=== PATIENT | male | born 1950 | race Hispanic/Latino ===

== ENCOUNTER → 2019-11-02 | Day surgery (SDC) | payer MEDICARE ==
[2019-10-31 08:34] LABS: BASOPHILS # (AUTO) 0.1 (0.0-0.1); BASOPHILS % 1.5 % (0.0-1.0); EOSINOPHILS # (AUTO) 0.2 (0.0-0.4); EOSINOPHILS % 2.3 % (0.0-6.0); HEMATOCRIT 44.3 % (38.2-49.6); HEMOGLOBIN 14.5 g/dL (14.0-18.0); LYMPHOCYTES # (AUTO) 2.5 (1.0-3.2); LYMPHOCYTES % 33.3 % (18.0-39.1); MEAN CORPUSCULAR HEMOGLOBIN 28.9 pg (28-32); MEAN CORPUSCULAR HGB CONC 32.7 g/dL (31-35); MEAN CORPUSCULAR VOLUME 88.4 fL (81-99); MONOCYTES # (AUTO) 0.9 (0.2-0.8); MONOCYTES % 11.6 % (4.4-11.3); NEUTROPHILS # (AUTO) 3.8 (2.1-6.9); NEUTROPHILS % 50.5 % (38.7-80.0); PLATELET COUNT 287 x10e3/uL (140-360); RED BLOOD COUNT 5.01 x10e6/uL (4.3-5.7); RED CELL DISTRIBUTION WIDTH 14.3 % (11.7-14.4)
--- NOTE | 2019-10-31 08:47 | Diagnostic Imaging Report ---
EXAM: CHEST 2 VIEWS DATE: 10/31/2019 8:03 AM INDICATION: Preoperative evaluation COMPARISON: None FINDINGS: The trachea is midline. The lungs are symmetrically expanded without evidence for large focal consolidation, pneumothorax, or significant pleural effusion. The cardiomediastinal silhouette and pulmonary vasculature are within normal limits. No acute osseous abnormality is identified. The surrounding soft tissues are unremarkable. IMPRESSION: No acute cardiopulmonary process identified. Signed by: Dr. Baltazar Trotter MD on 10/31/2019 8:44 AM
--- NOTE | 2019-10-31 08:51 | Diagnostic Imaging Report ---
EXAM: ABDOMEN-1VIEW (KUB) DATE: 10/31/2019 8:04 AM INDICATION: Preoperative evaluation COMPARISON: None FINDINGS/IMPRESSION: There is a 2.2 cm calcification projecting over the right mid-abdomen which is in the expected course of the right ureter and may represent a ureteral stone. No prior examinations are available for comparison. No other radiographically evident renal calculi are appreciated. A suspected phlebolith is noted within the left hemipelvis. Bowel gas pattern is nonobstructive. No acute osseous abnormality is identified. Signed by: Dr. Baltazar Trotter MD on 10/31/2019 8:48 AM
[2019-10-31 08:56] LABS: ANION GAP 10.8 mmol/L (8-16); BLOOD UREA NITROGEN 21 mg/dL (7-26); BUN/CREATININE RATIO 23 (6-25); CALCIUM 9.4 mg/dL (8.4-10.2); CARBON DIOXIDE 28 mmol/L (22-29); CHLORIDE 105 mmol/L (98-107); EST GLOMERULAR FILTRATION RATE > 60 ML/MIN (60-); GLUCOSE 98 mg/dL (74-118); POTASSIUM 3.8 mmol/L (3.5-5.1); SODIUM 140 mmol/L (136-145)
[~2019-11-02] MED LIST: CEFTRIAXONE SOD 1 GM/NS 50 ML 50 ML IV ONE; DESFLURANE 240 ML BTL INH ONE; DEXAMETHASONE SOD PHOS INJ 4 MG/ML VIAL ONE; EPHEDRINE SULFATE INJ 50 MG/ML VIAL ONE; FENTANYL CITRATE/PF 100MCG/2 ML INJ ONE; FINASTERIDE5 MG PO; FLOMAX0.4 MG PO; IOPAMIDOL 300MG/ML 50ML INFUS..BTL IV ONE; LIDOCAINE HCL 2% LOCAL INJ 5 ML SDV VIAL INJ ONE; LOVASTATIN40 MG PO; MIDAZOLAM HCL 2 MG/2 ML VIAL ONE; OMEPRAZOLE40 MG PO; ONDANSETRON HCL INJ 2MG/ML 2ML 2 MG/ML VIAL ONE; PROPOFOL IV EMULSION 10 MG/ML 20 ML VIAL ONE; TRIAMTERENE-HC1 EAC1 PO
--- OUTSIDE RECORDS SUMMARY | 2019-11-02 06:06 | XMS REPORT ---
Author Author [facility] Address Unknown Phone Unavailable Care Team Providers Care Director Of Therapy Services Name Role Phone JEAN-PIERRE GE Unavailable Unavailable Problems This patient has no known problems. Allergies, Adverse Reactions, Alerts This patient has no known allergies or adverse reactions. Medications This patient has no known medications. Results Test Description Test Time Test Comments Text Results Atomic Results Result Comments ABDOMEN-1VIEW (KUB) 2019-10-31 08:45:00 [place] [id number] Patient Name: LAVINIA BUENO MR #: [id number] : 1950 Age/Sex: 69/M Req #: [id number] Adm Physician: Ordered by: JEAN-PIERRE GE MD Report #: [id number] Location: OR Room/Bed: Procedure: [id number] DX/ABDOMEN-1VIEW (KUB) Exam Date: Exam Time: REPORT STATUS: Signed EXAM: ABDOMEN-1VIEW (KUB) DATE: 10/31/2019 8:04 AM INDIC ATION: Preoperative evaluation COMPARISON: None FINDINGS/IMPRESSION: There is a 2.2 cm calcification projecting over the right mid-abdomen which is in the expected course of the right ureter and may represent a ureteral stone. No prior examinations are available for comparison. No other radiographically evident renal calculi are appreciated. A suspected phlebolith is noted within the left hemipelvis. Bowel gas pattern is nonobstructive. No acute osseous abnormality is identified. Signed by: Dr. Baltazar Trotter MD on 10/31/2019 8:48 AM Dictated By: BALTAZAR TROTTER MD 7 Transcribed By: ESTHER on 10/31/19847 COPY TO: JEAN-PIERRE GE MD CHEST 2 VIEWS 2019-10-31 08:43:00 [place] [id number] Patient Name: LAVINIA BUENO MR #: [id number] : 1950 Age/Sex: 69/M Req #: [id number] Adm Physician: Ordered by: JEAN-PIERRE GE MD Report #: [id number] Location: OR Room/Bed: Procedure: [id number] DX/CHEST 2 VIEWS Exam Date: Exam Time: REPORT STATUS: Signed EXAM: CHEST 2 VIEWS DATE: 10/31/2019 8:03 AM INDICATION: Preop erative evaluation COMPARISON: None FINDINGS: The trachea is midline. The lungs are symmetrically expanded without evidence for large focal consolidation, pneumothorax, or significant pleural effusion. The cardiomediastinal silhouette and pulmonary vasculature are within normal limits. No acute osseous abnormality is identified. The surrounding soft tissues are unremarkable. IMPRESSION: No acute cardiopulmonary process identified. Signed by: Dr. Baltazar Trotter MD on 10/31/2019 8:44 AM Dictated By: BALTAZAR TROTTER MD 3 Transcribed By: ESTHER on 10/31/19843 COPY TO: JEAN-PIERRE GE MD
[2019-11-02 08:30] VITALS: BP 166/88
--- NOTE | 2019-11-05 08:55 | Operative Report ---
DATE OF PROCEDURE: 11/02/2019 SURGEON: Sebastian Tavarez MD PREOPERATIVE DIAGNOSES: Right 2.0 x 2.1 cm mid ureteral calculus, right hydronephrosis, hematuria. POSTOPERATIVE DIAGNOSES: Right 2.0 x 2.1 cm mid ureteral calculus, right hydronephrosis, hematuria. PROCEDURES: 1. Cystourethroscopy with right ureteral catheterization (entirely separate procedure for microscopic hematuria). 2. Right-sided shock wave lithotripsy (entirely separate procedure for diagnosis of right ureteral calculi). 3. Supervision of fluoroscopy. 4. Interpretation of retrograde pyelography. ANESTHESIA: General. ESTIMATED BLOOD LOSS: Minimal. COMPLICATIONS: None. INDICATIONS FOR PROCEDURE: Mr. Augustin is a 69-year-old male patient with a history of hematuria, found to have a very large right mid ureteral calculus, which is obstructing. The patient and I had an extensive discussion of alternatives, the benefits, the fact that this is an emergent condition, which requires immediate intervention clear to do so, could lead to renal failure, atrophy, loss of the kidney, infection, even . The patient voiced understanding and elected to proceed. PROCEDURE IN DETAIL: After informed consent was obtained, the patient was taken to the operative suite, placed supine on operating table, and underwent general anesthesia by the Anesthesia Service. He was placed in dorsal position, and sterilely prepped and draped for cystoscopy. A 21-St Helenian cystoscope was inserted per urethra and normal urethra noted. Panendoscopy of the bladder revealed no tumors, no stones. Both ureteral orifices were in normal anatomic location and position. Right ureteral orifice was catheterized and retrograde pyelogram was performed revealing a very large obstructing right mid ureteral calculus. Multiple attempts were made to pass the guidewire through this. A 5-St Helenian open-ended catheter was advanced to the level of stone utilizing both an angled tip glide, straight glide, and a regular Stiff wire. A shock wave head was brought into view. A total 3000 shocks were delivered to the stone. Maximum power setting of 7. Attempts were then again made at the end of the procedure to advance this proximally, which were unsuccessful. At this time, we will write for the shock wave lithotripsy to do some workup and the patient followup in 1-2 weeks. Recheck imaging. Likely will return for a staged urgent procedure. Supervision of fluoroscopy and interpretation of retrograde pyelography: I was present for entire procedure and supervised fluoroscopy. There was no radiologist present. Attention was turned to the right renal orifice, which was catheterized. Retrograde pyelogram was performed revealing a delicate distal ureter, 20 x 20 cm right mid ureteral calculus proximal hydronephrosis on the right side, unable to place a stent. MD DAVID Lovell/RACHAELL /[id number]
== END | disposition home or self-care (01) ==
LOC: OR 05:10 → EDBD 07:00
PROVIDERS: ATTEND Urology
DX: N20.1 Calculus of ureter (principal); N13.30 Unspecified hydronephrosis; N40.1 Benign prostatic hyperplasia with lower urinary tract symptoms; N13.8 Other obstructive and reflux uropathy; R35.1 Nocturia; R39.14 Feeling of incomplete bladder emptying; K21.9 Gastro-esophageal reflux disease without esophagitis; I10 Essential (primary) hypertension; Z01.810 Encounter for preprocedural cardiovascular examination; Z01.818 Encounter for other preprocedural examination; Z01.812 Encounter for preprocedural laboratory examination
CPT/HCPCS: 36415; 50590; 71046; 74018; 80048; 85025; 93005; C1758; J0696; J1100; J2001; J2250; J2405; J2704; J3010; Q9967

== ENCOUNTER 2019-11-07 08:16 | Observation (INO) | payer MEDICARE ==
[~2019-11-07] VITALS: Ht 167.6 cm; Wt 78.9 kg
[~2019-11-07 08:16] MED LIST changes: -CEFTRIAXONE SOD 1 GM/NS 50 ML 50 ML IV ONE; -DESFLURANE 240 ML BTL INH ONE; -DEXAMETHASONE SOD PHOS INJ 4 MG/ML VIAL ONE; -EPHEDRINE SULFATE INJ 50 MG/ML VIAL ONE; -FENTANYL CITRATE/PF 100MCG/2 ML INJ ONE; -FINASTERIDE5 MG PO; -IOPAMIDOL 300MG/ML 50ML INFUS..BTL IV ONE; -LIDOCAINE HCL 2% LOCAL INJ 5 ML SDV VIAL INJ ONE; -MIDAZOLAM HCL 2 MG/2 ML VIAL ONE; -ONDANSETRON HCL INJ 2MG/ML 2ML 2 MG/ML VIAL ONE; -PROPOFOL IV EMULSION 10 MG/ML 20 ML VIAL ONE
[2019-11-07] MEDS ORDERED: ONDANSETRON HCL INJ 2MG/ML 2ML 2 MG/ML VIAL IV STA (08:25)
[2019-11-07] MEDS ORDERED: KETOROLAC TROMETHAMINE 30 MG/ML VIAL IV STA (08:25)
[2019-11-07] MEDS ORDERED: SODIUM CHLORIDE 0.9% 1000ML 1,000 ML IV STA (08:41)
[2019-11-07] MEDS ORDERED: MORPHINE SULFATE INJ 4 MG/ML INJ 1ML IV STA (08:48)
[2019-11-07 09:01] LABS: BASOPHILS # (AUTO) 0.1 (0.0-0.1); BASOPHILS % 0.9 % (0.0-1.0); EOSINOPHILS # (AUTO) 0.1 (0.0-0.4); EOSINOPHILS % 0.9 % (0.0-6.0); HEMATOCRIT 45.4 % (38.2-49.6); HEMOGLOBIN 15.1 g/dL (14.0-18.0); LYMPHOCYTES # (AUTO) 2.8 (1.0-3.2); LYMPHOCYTES % 27.4 % (18.0-39.1); MEAN CORPUSCULAR HEMOGLOBIN 28.7 pg (28-32); MEAN CORPUSCULAR HGB CONC 33.3 g/dL (31-35); MEAN CORPUSCULAR VOLUME 86.3 fL (81-99); MONOCYTES # (AUTO) 1.2 (0.2-0.8); MONOCYTES % 11.3 % (4.4-11.3); NEUTROPHILS # (AUTO) 6.1 (2.1-6.9); NEUTROPHILS % 58.8 % (38.7-80.0); PLATELET COUNT 280 x10e3/uL (140-360); RED BLOOD COUNT 5.26 x10e6/uL (4.3-5.7); RED CELL DISTRIBUTION WIDTH 14.3 % (11.7-14.4)
[2019-11-07 09:17] LABS: BILIRUBIN,URINE NEGATIVE (NEGATIVE); CLARITY,URINE CLEAR (CLEAR); COLOR,URINE YELLOW (YELLOW); KETONES,URINE NEGATIVE (NEGATIVE); LEUKOCYTE ESTERASE ,URINE NEGATIVE (NEGATIVE); NITRITE,URINE NEGATIVE (NEGATIVE); PROTEIN,URINE DIPSTICK NEGATIVE (NEGATIVE); URINE UROBILINOGEN 0.2 mg/dL (0.2 - 1)
[2019-11-07 09:23] LABS: ALANINE AMINOTRANSFERASE 18 IU/L (0-55); ALBUMIN 4.1 g/dL (3.5-5.0); ALBUMIN/GLOBULIN RATIO 1.2 (0.8-2.0); ALKALINE PHOSPHATASE 99 IU/L (40-150); BLOOD UREA NITROGEN 14 mg/dL (7-26); BUN/CREATININE RATIO 15 (6-25); CALCIUM 9.2 mg/dL (8.4-10.2); CARBON DIOXIDE 25 mmol/L (22-29); CHLORIDE 99 mmol/L (98-107); CREATININE, SERUM 0.91 mg/dL (0.72-1.25); EST GLOMERULAR FILTRATION RATE > 60 ML/MIN (60-); GLUCOSE 95 mg/dL (74-118); SODIUM 134 mmol/L (136-145)
[2019-11-07 09:24] LABS: BACTERIA,URINE RARE /HPF; EPITHELIAL CELLS,URINE RARE /LPF; RBC,URINE 21-50 /HPF (0-5); WBC,URINE (MAN) 0-5 /HPF (0-5)
--- NOTE | 2019-11-07 10:26 | Diagnostic Imaging Report ---
EXAM: CT Abdomen and Pelvis WITHOUT intravenous contrast INDICATION: Abdominal pain, renal calculus COMPARISON: KUB 10/31/2019 TECHNIQUE: Abdomen and pelvis were scanned utilizing a multidetector helical scanner from the lung base to the pubic symphysis without administration of IV contrast. Coronal and sagittal reformations were obtained. IV CONTRAST: None ORAL CONTRAST: None COMPLICATIONS: None RADIATION DOSE: Total DLP: 613.7 mGy*cm Dose modulation, iterative reconstruction, and/or weight based adjustment of the mA/kV was utilized to reduce the radiation dose to as low as reasonably achievable. FINDINGS: LOWER THORAX: Normal. HEPATOBILIARY: No focal hepatic lesions. No biliary ductal dilatation. The gallbladder appears unremarkable. SPLEEN: No splenomegaly. PANCREAS: No focal masses or ductal dilatation. ADRENALS: No adrenal nodules. KIDNEYS/URETERS: Severe right hydroureteronephrosis. 11 mm obstructing calculus in the right mid ureter. No left hydronephrosis or hydroureter. No left urinary calculus. PELVIC ORGANS/BLADDER: Cervantes catheter in the decompressed bladder. PERITONEUM / RETROPERITONEUM: No free air or fluid. LYMPH NODES: No lymphadenopathy. VESSELS: Moderate atherosclerotic calcifications of the nonaneurysmal abdominal aorta and major branches. GI TRACT: Mild diverticulosis without CT evidence of diverticulitis. No abnormal bowel thickening. No bowel obstruction. Normal appendix. BONES AND SOFT TISSUES: No acute osseous injury. No suspicious lytic or blastic lesions. IMPRESSION: 11 mm obstructing calculus in the right mid ureter with associated severe right hydroureteronephrosis. No left hydronephrosis or urinary calculus. The above findings were discussed with Dr. Kapoor on 11/07/2019 10:09 AM, who responded indicating that the communication was understood. Signed by: Teto Gilliam MD on 11/07/2019 10:23 AM
[2019-11-07 10:27] LABS: INR 0.87; PROTHROMBIN TIME 12.3 seconds (11.9-14.5)
[2019-11-07] MEDS ORDERED: MORPHINE SULFATE INJ 4 MG/ML INJ 1ML IV PRN (10:30)
[2019-11-07] MEDS ORDERED: ONDANSETRON HCL INJ 2MG/ML 2ML 2 MG/ML VIAL IV PRN (10:30)
[2019-11-07] MEDS ORDERED: SODIUM CHLORIDE 0.9% 1000ML 1,000 ML ONE (10:50)
[2019-11-07] MEDS: SODIUM CHLORIDE 0.9% 1000ML 1,000 ML IV SCH ×2 (10:53→20:29)
[2019-11-07] MEDS: CEFTRIAXONE SOD 1 GM/NS 50 ML 50 ML IV SCH (10:53)
[2019-11-07] MEDS ORDERED: IOPAMIDOL 300 MG/ML 15ML VIAL IT ONE ×2 (13:31→14:53)
[2019-11-07] MEDS ORDERED: LIDOCAINE HCL 1% LOCAL INJ 20 ML VIAL ONE (13:31)
[2019-11-07] MEDS ORDERED: MIDAZOLAM HCL 2 MG/2 ML VIAL ONE (13:35)
[2019-11-07] MEDS ORDERED: FENTANYL CITRATE/PF 100MCG/2 ML INJ ONE (13:36)
[2019-11-07] MEDS ORDERED: AMLODIPINE BESYLATE 10 MG TAB PO ONE (15:45)
[2019-11-07] MEDS ORDERED: HYDROCODONE/APAP 10MG-325MG TAB PO PRN (15:45)
[2019-11-07] MEDS ORDERED: MAGNESIUM HYDROXIDE 30 ML UDC PO PRN (15:45)
[2019-11-07] MEDS ORDERED: KETOROLAC TROMETHAMINE 30 MG/ML VIAL IV PRN (15:45)
[2019-11-07 16:00] VITALS: BP 160/80
--- NOTE | 2019-11-07 16:36 | Diagnostic Imaging Report ---
PROCEDURE: Genitourinary catheter placement Procedural Personnel Attending physician(s): Teto Gilliam MD Fellow physician(s): None Resident physician(s): None Advanced practice provider(s): None Pre-procedure diagnosis: Right hydronephrosis, right ureteral obstruction Post-procedure diagnosis: Same Indication: Urinary obstruction Catheter(s) placed because the previous catheter(s) became dislodged within 30 days of placement (QCDR): No Additional clinical history: None Complications: No immediate complications. IMPRESSION: Right nephrostomy tube placement. Plan: Tube to gravity drainage. Routine exchange in 8-10 weeks if tube is still needed. PROCEDURE SUMMARY - Target organ: Unilateral [place] kidney - Image-guided placement of genitourinary catheter(s) - Additional procedure(s): None PROCEDURE DETAILS: Pre-procedure Consent: Informed consent for the procedure including risks, benefits and alternatives was obtained and time-out was performed prior to the procedure. Preparation: The site was prepared and draped using maximal sterile barrier technique including cutaneous antisepsis. Anesthesia/sedation Level of anesthesia/sedation: Moderate sedation (conscious sedation) 1mg Versed 50mcg Fentanyl Anesthesia/sedation administered by: Independent trained observer under attending supervision with continuous monitoring of the patient?s level of consciousness and physiologic status Total intra-service sedation time (minutes): 30 Right genitourinary catheter placement Local anesthesia was administered. A needle was advanced into the renal collecting system under ultrasound and fluoroscopy guidance. A wire was advanced, the tract was serially dilated and a nephrostomy tube was placed . Contrast injection was performed. Genitourinary catheter placed: 10Fr Uresil Findings: Locking loop in renal pelvis. External catheter securement: Non-absorbable suture Additional genitourinary system intervention Genitourinary intervention: None Location of intervention: Not applicable Device used: Not applicable Description of intervention: Not applicable Post-intervention findings: Not applicable Contrast Contrast agent: Isovue 370 Contrast volume (mL): 25 Radiation Dose Fluoroscopy time (minutes): 2.8 Reference air kerma (mGy): 19.9 Additional Details Additional description of procedure: None Equipment details: None Specimens removed: None. A sample was sent for analysis. Estimated blood loss (mL): Less than 10 Standardized report: [email or web address] Attestation Signer name: Teto Gilliam MD I attest that I was present for the entire procedure. I reviewed the stored images and agree with the report as written. Signed by: Teto Gilliam MD on 11/07/2019 4:33 PM
[2019-11-07 16:54] VITALS: BP 160/80
[2019-11-07 16:58] VITALS: BP 160/80
[2019-11-07] MEDS: SENNOSIDES 8.6 MG TAB PO SCH (17:01)
[2019-11-07 21:34] VITALS: BP 139/77
[2019-11-07 21:37] VITALS: BP 139/77
[2019-11-08] VITALS: BP 108/55
[2019-11-08] MEDS: CEFTRIAXONE SOD 1 GM/NS 50 ML 50 ML IV SCH (05:58)
[2019-11-08] MEDS: AMLODIPINE BESYLATE 10 MG TAB PO SCH ×2 (05:58→08:30)
[2019-11-08 06:00] VITALS: BP 156/79
[2019-11-08 06:06] LABS: BASOPHILS # (AUTO) 0.1 (0.0-0.1); BASOPHILS % 0.7 % (0.0-1.0); EOSINOPHILS # (AUTO) 0.2 (0.0-0.4); HEMATOCRIT 41.8 % (38.2-49.6); HEMOGLOBIN 13.5 g/dL (14.0-18.0); LYMPHOCYTES # (AUTO) 2.4 (1.0-3.2); LYMPHOCYTES % 29.5 % (18.0-39.1); MEAN CORPUSCULAR HEMOGLOBIN 28.9 pg (28-32); MEAN CORPUSCULAR HGB CONC 32.3 g/dL (31-35); MEAN CORPUSCULAR VOLUME 89.5 fL (81-99); MONOCYTES # (AUTO) 1.1 (0.2-0.8); MONOCYTES % 13.3 % (4.4-11.3); NEUTROPHILS # (AUTO) 4.3 (2.1-6.9); NEUTROPHILS % 53.6 % (38.7-80.0); PLATELET COUNT 252 x10e3/uL (140-360); RED BLOOD COUNT 4.67 x10e6/uL (4.3-5.7); RED CELL DISTRIBUTION WIDTH 14.7 % (11.7-14.4)
[2019-11-08 06:22] LABS: ALANINE AMINOTRANSFERASE 14 IU/L (0-55); ALBUMIN 3.2 g/dL (3.5-5.0); ALBUMIN/GLOBULIN RATIO 1.1 (0.8-2.0); ALKALINE PHOSPHATASE 83 IU/L (40-150); ANION GAP 8.5 mmol/L (8-16); BLOOD UREA NITROGEN 12 mg/dL (7-26); BUN/CREATININE RATIO 14 (6-25); CALCIUM 8.6 mg/dL (8.4-10.2); CARBON DIOXIDE 29 mmol/L (22-29); CHLORIDE 108 mmol/L (98-107); CREATININE, SERUM 0.86 mg/dL (0.72-1.25); EST GLOMERULAR FILTRATION RATE > 60 ML/MIN (60-); GLUCOSE 97 mg/dL (74-118); POTASSIUM 4.5 mmol/L (3.5-5.1); SODIUM 141 mmol/L (136-145)
[2019-11-08] MEDS ORDERED: PANTOPRAZOLE SOD 40 MG TABEC PO SCH (07:30)
[2019-11-08 07:44] VITALS: BP 139/71
[2019-11-08] MEDS: SENNOSIDES 8.6 MG TAB PO SCH (08:30)
[2019-11-08 08:34] VITALS: BP 139/71
[2019-11-08] MEDS ORDERED: TAMSULOSIN HCL 0.4 MG CAP PO SCH (09:00)
--- NOTE | 2019-11-08 09:45 | Discharge Summary ---
PRIMARY CARE PHYSICIAN: Feng Banegas MD BLOCKING MACHINE OPERATOR: Sebastian Tavarez MD The patient is on observation. FINAL DIAGNOSES: 1. Obstructed kidney stone, a 11.1 mm stone on the right side associated with hydroureteronephrosis. 2. Status post right nephrostomy tube placement. SUMMARY: A 69-year-old male with previous November 05, 2019, shockwave lithotripsy. The patient has remained a 11.1 mm stone obstructed to the right side associated with hydroureteronephrosis. The patient is now status post a nephrostomy tube. He is doing much better. Pain improving. Urine output positive. The patient also had a Cervantes catheter. The patient is stable. He will be discharged home today with a nephrostomy tube on the right and then continue with Cervantes catheter. He will follow up with Dr. Tavarez within a week. MD DOYLE Dunn/RACHAELL /[id number]
--- NOTE | 2019-11-08 10:41 | NUR ---
PT EDUCATED ON HOW TO EMPTY HIS NEPHROSTOMY BAG AND HOW TO CHANGE HIS KAUFFMAN BAG FROM LEG BAG TO KAUFFMAN FOR NIGHT USE, PT AND WAS EDUCATED, IV SITE REMOVED NO SWELLING NO REDNESS TO SITE. PT WAS ASKED TO FOLLOW UP WITH THEIR PCP, AND EDUCATED ON MEDICATIONS.
[2019-11-23] MEDS ORDERED: FINASTERIDE5 MG PO (15:38)
== END 2019-11-08 10:45 | disposition home or self-care (01) ==
LOC: ER 08:16 → ERHOLD 10:27 → MED/SURG 16:07
PROVIDERS: ADMIT Internal Medicine; ATTEND Internal Medicine
DX: N13.2 Hydronephrosis with renal and ureteral calculous obstruction (principal); R33.9 Retention of urine, unspecified; N40.1 Benign prostatic hyperplasia with lower urinary tract symptoms; I10 Essential (primary) hypertension; E78.5 Hyperlipidemia, unspecified; K21.9 Gastro-esophageal reflux disease without esophagitis
CPT/HCPCS: 36415; 50430; 51700; 74176; 74470; 76942; 80053; 81001; 85025; 85610; 85730; 87086; 99284; C1769; G0378; J0696; J2001; J2250; J3010; J7030; Q9967

== ENCOUNTER → 2019-11-28 | Day surgery (SDC) | payer MEDICARE ==
[~2019-11-28] MED LIST changes: +CEFTRIAXONE SOD 1 GM/NS 50 ML 50 ML IV ONE; +DEXAMETHASONE SOD PHOS INJ 4 MG/ML VIAL ONE; +EPHEDRINE SULFATE INJ 50 MG/ML VIAL ONE; +FENTANYL CITRATE/PF 100MCG/2 ML INJ ONE; +FINASTERIDE5 MG PO; +GLYCOPYRROLATE INJ 0.2 MG/ML VIAL ONE; +IOPAMIDOL 300MG/ML 50ML INFUS..BTL IV ONE; +LIDOCAINE HCL 2% LOCAL INJ 5 ML SDV VIAL INJ ONE; +ONDANSETRON HCL INJ 2MG/ML 2ML 2 MG/ML VIAL ONE; +PROPOFOL IV EMULSION 10 MG/ML 20 ML VIAL ONE; +SEVOFLURANE INHAL SOLN 250 ML PEN BTL ONE
[2019-11-28 08:50] VITALS: BP 146/88
--- NOTE | 2019-11-30 09:18 | Operative Report ---
DATE OF PROCEDURE: 11/28/2019 SURGEON: Sebastian Tavarez MD PREOPERATIVE DIAGNOSES: 1. Right mid ureteral calculus. 2. Hematuria. POSTOPERATIVE DIAGNOSES: 1. Right mid ureteral calculus. 2. Hematuria. PROCEDURES: 1. Right-sided ureteroscopy with laser lithotripsy (entirely separate procedure in a staged fashion for a 2.5 cm x 2.2 cm right mid ureteral calculus). 2. Supervision of fluoroscopy. 3. Interpretation of retrograde pyelography. ANESTHESIA: General. ESTIMATED BLOOD LOSS: Minimal. COMPLICATIONS: None. INDICATIONS FOR PROCEDURE: Mr. Augustin is a very pleasant 69-year-old male with a history of a greater than 1 inch right ureteral calculus. He and I had a long discussion about alternatives, risks, and benefits of doing nothing, shock wave lithotripsy and staged ureteroscopy, laser lithotripsy. He voiced understanding of the options, alternatives, risks, and benefits, and elected to proceed. PROCEDURE IN DETAIL: After informed consent was obtained, the patient was taken to operative suite, placed supine on the operating table, underwent general anesthesia by Anesthesia Service, and placed in dorsal lithotomy position and sterilely prepped and draped for cystoscopy. A 21-Cambodian cystoscope was inserted per urethra, normal urethra was noted. Panendoscopy of the bladder revealed no tumors, no stones. Both ureteral orifices were in normal anatomic location, only the left was seen to efflux urine. Right ureteral orifice was catheterized with a 5-Cambodian open-ended catheter. A guide wire was advanced, little stones could not be passed. The wire was advanced to the level of stone. Ureteroscope was inserted alongside the wire. Utilizing 365 micron laser fiber, the stone was fragmented utilizing dusting and fragmenting settings until visualization became impossible secondary to erythema and oozing and stone could no longer be visualized. The procedure was terminated, approximately one-fourth of stone had been lasered, still could not gain proximal access. We will continue the percutaneous nephrostomy until we can complete the stone procedure. Left retrograde pyelogram performed showing no extravasation, large obstructing stone, nephrostomy, in adequate position. Sebastian Tavarez MD ES/MODL /[id number] MTDPipe
== END | disposition home or self-care (01) ==
LOC: OR 05:02
PROVIDERS: ATTEND Urology
DX: N20.1 Calculus of ureter (principal); N13.30 Unspecified hydronephrosis; N40.1 Benign prostatic hyperplasia with lower urinary tract symptoms; R35.1 Nocturia; R39.14 Feeling of incomplete bladder emptying; I10 Essential (primary) hypertension; Z01.812 Encounter for preprocedural laboratory examination; Z11.59 Encounter for screening for other viral diseases
CPT/HCPCS: 52353; 74420; 87635; C1769; J0696; J1100; J2001; J2405; J2704; J3010; Q9967

== ENCOUNTER 2019-12-03 16:43 | Emergency (ER) | payer MEDICARE ==
[~2019-12-03] VITALS: Ht 167.6 cm; Wt 78.9 kg
[~2019-12-03 16:43] MED LIST changes: -CEFTRIAXONE SOD 1 GM/NS 50 ML 50 ML IV ONE; -DEXAMETHASONE SOD PHOS INJ 4 MG/ML VIAL ONE; -EPHEDRINE SULFATE INJ 50 MG/ML VIAL ONE; -FENTANYL CITRATE/PF 100MCG/2 ML INJ ONE; -GLYCOPYRROLATE INJ 0.2 MG/ML VIAL ONE; -IOPAMIDOL 300MG/ML 50ML INFUS..BTL IV ONE; -LIDOCAINE HCL 2% LOCAL INJ 5 ML SDV VIAL INJ ONE; -ONDANSETRON HCL INJ 2MG/ML 2ML 2 MG/ML VIAL ONE; -PROPOFOL IV EMULSION 10 MG/ML 20 ML VIAL ONE; -SEVOFLURANE INHAL SOLN 250 ML PEN BTL ONE
[2019-12-03 17:58] LABS: CLARITY,URINE SL CLOUDY (CLEAR); COLOR,URINE YELLOW (YELLOW); LEUKOCYTE ESTERASE ,URINE SMALL (NEGATIVE); NITRITE,URINE NEGATIVE (NEGATIVE); PROTEIN,URINE DIPSTICK NEGATIVE (NEGATIVE)
[2019-12-03 17:59] LABS: BILIRUBIN,URINE NEGATIVE (NEGATIVE); KETONES,URINE NEGATIVE (NEGATIVE); URINE UROBILINOGEN 0.2 mg/dL (0.2 - 1)
[2019-12-03 18:11] LABS: RBC,URINE >50 /HPF (0-5); WBC,URINE (MAN) >50 /HPF (0-5)
[2019-12-03 18:12] LABS: BACTERIA,URINE MODERATE /HPF; EPITHELIAL CELLS,URINE FEW /LPF
[2019-12-03 19:00] VITALS: BP 123/78
== END 2019-12-03 19:03 | disposition home or self-care (01) ==
LOC: ER 16:43
DX: R33.9 Retention of urine, unspecified (principal); N40.1 Benign prostatic hyperplasia with lower urinary tract symptoms; N30.90 Cystitis, unspecified without hematuria; I10 Essential (primary) hypertension
CPT/HCPCS: 51798; 81001; 87086; 87186; 99283

== ENCOUNTER → 2019-12-07 | Day surgery (SDC) | payer MEDICARE ==
[~2019-12-07] MED LIST changes: +ACETAMINOPHEN 1000 MG/100 ML 100 ML IV ONE; +CEFTRIAXONE SOD 1 GM/NS 50 ML 50 ML IV ONE; +IOPAMIDOL 300MG/ML 50ML INFUS..BTL IV ONE; +LIDOCAINE HCL 2% LOCAL INJ 5 ML SDV VIAL INJ ONE; +ONDANSETRON HCL INJ 2MG/ML 2ML 2 MG/ML VIAL ONE; +PROPOFOL IV EMULSION 10 MG/ML 20 ML VIAL ONE; +SEVOFLURANE INHAL SOLN 250 ML PEN BTL ONE
[2019-12-07 08:40] VITALS: BP 154/85
--- NOTE | 2019-12-07 13:53 | Operative Report ---
DATE OF PROCEDURE: 12/07/2019 SURGEON: Sebastian Tavarez MD PREOPERATIVE DIAGNOSIS: Right ureteral calculus. POSTOPERATIVE DIAGNOSIS: Right ureteral calculus. PROCEDURE: Staged shock wave lithotripsy, right side. ANESTHESIA: General. ESTIMATED BLOOD LOSS: Minimal. COMPLICATIONS: None. INDICATIONS: Mr. Augustin is a very pleasant 69-year-old male with a history of a greater than 2.5 x 2.5 cm right ureteral calculus. He has not had a nephrostomy placed. Initially, he underwent a staged lithotripsy, which fragmented approximately lower 2 mm of the office stone. He presented for laser lithotripsy with ureteroscopy. Approximately one-fourth of the stone was lasered getting to the core with difficulty and then oozing and the impaction of the stone would take at least 4 or more surgeries with laser. The patient and I had a long discussion of alternatives, risks, and benefits. Since he is a Taoist, an open ureteral stone removal at this time was out of the question and the ureteroscopy would likely take at least 3 or 4 sessions due to lack of visualization and then size of the stone. Did discuss the second shock wave lithotripsy as the calculus has been exposed with the hopes that this could fragment the stone and make this an easier possibility allowing some disimpaction of the fragments. The patient voiced understanding options. We will try lithotripsy. He voiced understanding of the risks and benefits, and elected to proceed. PROCEDURE IN DETAIL: After informed consent was obtained, the patient was taken to the operative suite, placed supine on the operating table, underwent general anesthesia by the Anesthesia Service. Stone was localized in the X, Y, and Z planes. Treatment was performed per treatment report. The patient tolerated procedure well and transported to the recovery room in excellent condition. Supervision of fluoroscopy: I was present for the entire procedure and supervised fluoroscopy. There was no radiologist present. Sebastian Tavarez MD ES/MODL /[id number]
== END | disposition home or self-care (01) ==
LOC: OR 05:10
PROVIDERS: ATTEND Urology
DX: N20.1 Calculus of ureter (principal); N13.30 Unspecified hydronephrosis; N40.1 Benign prostatic hyperplasia with lower urinary tract symptoms; R39.14 Feeling of incomplete bladder emptying; R35.1 Nocturia; T19.9XXA Foreign body in genitourinary tract, part unspecified, initial encounter; I10 Essential (primary) hypertension; E78.5 Hyperlipidemia, unspecified; K21.9 Gastro-esophageal reflux disease without esophagitis; Z01.812 Encounter for preprocedural laboratory examination; Z11.59 Encounter for screening for other viral diseases
CPT/HCPCS: 50590; 87635; J0131; J0696; J2001; J2405; J2704

== ENCOUNTER → 2019-12-31 | Day surgery (SDC) | payer MEDICARE, OTHER ==
[2019-12-27 09:51] LABS: BASOPHILS # (AUTO) 0.1 (0.0-0.1); BASOPHILS % 1.2 % (0.0-1.0); EOSINOPHILS # (AUTO) 0.2 (0.0-0.4); HEMATOCRIT 42.3 % (38.2-49.6); HEMOGLOBIN 14.1 g/dL (14.0-18.0); LYMPHOCYTES # (AUTO) 2.4 (1.0-3.2); MEAN CORPUSCULAR HEMOGLOBIN 28.5 pg (28-32); MEAN CORPUSCULAR HGB CONC 33.3 g/dL (31-35); MEAN CORPUSCULAR VOLUME 85.6 fL (81-99); MONOCYTES # (AUTO) 0.9 (0.2-0.8); NEUTROPHILS # (AUTO) 3.9 (2.1-6.9); NEUTROPHILS % 52.1 % (38.7-80.0); PLATELET COUNT 294 x10e3/uL (140-360); RED BLOOD COUNT 4.94 x10e6/uL (4.3-5.7); RED CELL DISTRIBUTION WIDTH 14.5 % (11.7-14.4)
[2019-12-27 10:21] LABS: ANION GAP 13.5 mmol/L (8-16); BLOOD UREA NITROGEN 16 mg/dL (7-26); BUN/CREATININE RATIO 20 (6-25); CARBON DIOXIDE 24 mmol/L (22-29); CHLORIDE 106 mmol/L (98-107); CREATININE, SERUM 0.82 mg/dL (0.72-1.25); EST GLOMERULAR FILTRATION RATE > 60 ML/MIN (60-); GLUCOSE 107 mg/dL (74-118); POTASSIUM 3.5 mmol/L (3.5-5.1); SODIUM 140 mmol/L (136-145)
[~2019-12-31] MED LIST changes: -ACETAMINOPHEN 1000 MG/100 ML 100 ML IV ONE; -CEFTRIAXONE SOD 1 GM/NS 50 ML 50 ML IV ONE; +DEXAMETHASONE SOD PHOS INJ 4 MG/ML VIAL ONE; +FENTANYL CITRATE/PF 100MCG/2 ML INJ ONE; +GENTAMICIN 120MG/NS 100ML 100 ML ONE; +IOPAMIDOL 300MG/ML 100 ML INFUS..BTL IV ONE; +LEVOFLOXACIN250 MG PO; +MIDAZOLAM HCL 2 MG/2 ML VIAL ONE; +SODIUM CHLORIDE 0.9% 250ML 250 ML ONE
[2019-12-31 08:54] LABS: INR 0.86; PROTHROMBIN TIME 12.2 seconds (11.9-14.5)
[2019-12-31 09:00] VITALS: BP 152/84
--- NOTE | 2019-12-31 10:26 | Operative Report ---
DATE OF PROCEDURE: 12/31/2019 SURGEON: Sebastian Tavarez MD PREOPERATIVE DIAGNOSES: 1. Massive right ureteral calculus. 2. Right hydronephrosis. POSTOPERATIVE DIAGNOSES: 1. Massive right ureteral calculus. 2. Right hydronephrosis. 3. Severe ureteral stricture disease/extrinsic compression. PROCEDURES: 1. Right-sided ureteroscopy, dilation of stricture. 2. Supervision of ostomy. 3. Interpretation of retrograde pyelography. ANESTHESIA: General. ESTIMATED BLOOD LOSS: Minimal. COMPLICATIONS: None. INDICATIONS: Mr. Augustin is a 69-year-old male who originally presented with a 2.5 x 1.1 cm right ureteral calculus. He has had approximately 3rd of this destroyed with a combination of lithotripsy and a prior ureteroscopy. The patient now presents for ureteroscopy. PROCEDURE IN DETAIL: After informed consent was obtained, the patient was taken to the operative suite, placed supine on the operative table, underwent general anesthesia by the Anesthesia Service. He was placed in dorsal lithotomy position and sterilely prepped and draped for cystoscopy. A 21-Pu[place] Rican cystoscope was inserted per urethra and normal urethra was noted. Panendoscopy of the bladder revealed no tumors, no stones. Both ureteral orifices were normal in anatomic location. Only the left was seen to efflux urine. The right ureter was catheterized with a guidewire. The wire was seen to go to the level of stone and could not be navigated to proximal stone. Initially as was successful last time, semi-rigid ureteroscope was advanced, today it could only be advanced to the level of vessels. At this time, a flexible ureteroscope was advanced to the same level. It was unable to pass either. stricture was dilated. However, the scope could still not be advanced proximal to this. There was a tortuosity of the ureter. Upon looking at the CAT scan, it appears there may be extrinsic compression from the great vessels in this area. With the inability to advance ureteroscope any more proximally and consideration of plant operations worker or avulsion of the ureter, we terminated the case. I removed the safety wire continued nephrostomy. Spoke with family regarding the new findings and possibility of either going from above or open. Supervision of fluoroscopy and interpretation ventriculography: I was present for the entire procedure and supervised fluoroscopy. There was no radiologist present. Attention was turned to the right ureteral orifice, which was catheterized. Retrograde pyelogram performed through ureteroscope revealing a very dense ureteral stricture with nephrostomy in adequate position on right side. MD DAVID Lovell/RACHAELL /[id number] MTDPipe
--- NOTE | 2019-12-31 10:41 | Diagnostic Imaging Report ---
Right percutaneous prostate catheter exchange. History: Obstructive right-sided hydronephrosis, status post percutaneous nephrostomy catheter placement. Modality: Pleuroscopy Sedation: Versed 1 mg and fentanyl 50 mcg was given intravenously for conscious sedation. Vital signs were monitored throughout the procedure by a nurse, and remained stable. Physician intra-service time was 20. Fluoroscopy Time: 1.3 min. Reference Air Kerma (Ka, r): 11.1 mGy. Approach: The indwelling 10 Dominican) the prostate catheter Estimated blood loss: < 5 cc. Specimen: None. wash oil pump operator: Baltazar Trotter MD. Technique: Informed written consent was obtained. Discussion of risks, benefits, and alternatives were made with the patient. The patient expressed understanding and agreed to proceed. A universal timeout was performed prior to starting the procedure. All elements maximal sterile barrier technique was utilized for this procedure, including utilization of sterile scrub solution for skin prep, a large sterile sheet to cover the areas of the patient that were not prepped, and hand hygiene, mask, head covering, and sterile gown for performing radiologist and scrub technologist. Contrast was injected via the indwelling right nephrostomy catheter demonstrating catheter now terminating within a right calyx. Obstructive right ureteral stone again noted. 1% lidocaine was used for local anesthesia. The existing catheter was cut and a 0.035 Glidewire was advanced through the indwelling catheter into the proximal right ureter. The existing catheter was removed over wire. The Glidewire was exchanged for a 0.035 Bentson wire using a 4 Dominican Olson catheter. A new 10 Dominican nephrostomy catheter was then advanced over wire with pigtail terminating within the right renal pelvis. Contrast injection confirmed position. The catheter was fixed to the skin with silk suture. A sterile dressing was applied. Impression: Successful fluoroscopic guided right percutaneous nephrostomy catheter exchange 10 Dominican catheter as detailed above. Signed by: Dr. Baltazar Trotter MD on 12/31/2019 10:38 AM
== END | disposition home or self-care (01) ==
LOC: OR 05:41
PROVIDERS: ATTEND Urology
DX: N20.1 Calculus of ureter (principal); N13.1 Hydronephrosis with ureteral stricture, not elsewhere classified; Z46.6 Encounter for fitting and adjustment of urinary device; N40.1 Benign prostatic hyperplasia with lower urinary tract symptoms; R35.1 Nocturia; R33.8 Other retention of urine; R39.14 Feeling of incomplete bladder emptying; I10 Essential (primary) hypertension; K21.9 Gastro-esophageal reflux disease without esophagitis; Z01.812 Encounter for preprocedural laboratory examination; Z11.59 Encounter for screening for other viral diseases
CPT/HCPCS: 36415 ×2; 50387; 52344; 74420; 74470; 80048; 85025; 85610; 87635; C1758; C1769 ×2; J1100; J1580; J2001; J2250; J2405; J2704; J3010; J7050; Q9967 ×2

== ENCOUNTER → 2020-01-25 | Outpatient (CLI) | payer MEDICARE, OTHER ==
[2020-01-22 12:08] LABS: BASOPHILS # (AUTO) 0.1 (0.0-0.1); BASOPHILS % 0.8 % (0.0-1.0); EOSINOPHILS # (AUTO) 0.1 (0.0-0.4); HEMATOCRIT 41.4 % (38.2-49.6); HEMOGLOBIN 13.5 g/dL (14.0-18.0); LYMPHOCYTES # (AUTO) 2.3 (1.0-3.2); LYMPHOCYTES % 21.6 % (18.0-39.1); MEAN CORPUSCULAR HEMOGLOBIN 28.4 pg (28-32); MEAN CORPUSCULAR HGB CONC 32.6 g/dL (31-35); MEAN CORPUSCULAR VOLUME 87.2 fL (81-99); MONOCYTES # (AUTO) 1.3 (0.2-0.8); MONOCYTES % 11.8 % (4.4-11.3); NEUTROPHILS # (AUTO) 6.8 (2.1-6.9); NEUTROPHILS % 63.9 % (38.7-80.0); PLATELET COUNT 326 x10e3/uL (140-360); RED BLOOD COUNT 4.75 x10e6/uL (4.3-5.7); RED CELL DISTRIBUTION WIDTH 14.3 % (11.7-14.4)
[2020-01-22 12:45] LABS: CALCIUM 9.5 mg/dL (8.4-10.2); CHLORIDE 104 mmol/L (98-107); POTASSIUM 3.6 mmol/L (3.5-5.1); SODIUM 140 mmol/L (136-145)
[2020-01-22 13:10] LABS: ANION GAP 15.7 mmol/L (8-16); BLOOD UREA NITROGEN 16 mg/dL (7-26); BUN/CREATININE RATIO 14 (6-25); CARBON DIOXIDE 26 mmol/L (22-29); CREATININE, SERUM 1.17 mg/dL (0.72-1.25); EST GLOMERULAR FILTRATION RATE > 60 ML/MIN (60-)
[2020-01-22 13:20] LABS: GLUCOSE 110 mg/dL (74-118)
[~2020-01-25] MED LIST changes: +CEFTRIAXONE SOD 1 GM/NS 50 ML 50 ML IV ONE; -DEXAMETHASONE SOD PHOS INJ 4 MG/ML VIAL ONE; -FENTANYL CITRATE/PF 100MCG/2 ML INJ ONE; -GENTAMICIN 120MG/NS 100ML 100 ML ONE; -IOPAMIDOL 300MG/ML 100 ML INFUS..BTL IV ONE; -IOPAMIDOL 300MG/ML 50ML INFUS..BTL IV ONE; -LIDOCAINE HCL 2% LOCAL INJ 5 ML SDV VIAL INJ ONE; -MIDAZOLAM HCL 2 MG/2 ML VIAL ONE; -ONDANSETRON HCL INJ 2MG/ML 2ML 2 MG/ML VIAL ONE; -PROPOFOL IV EMULSION 10 MG/ML 20 ML VIAL ONE; -SEVOFLURANE INHAL SOLN 250 ML PEN BTL ONE; -SODIUM CHLORIDE 0.9% 250ML 250 ML ONE
--- NOTE | 2020-01-25 07:15 | NUR ---
SPIRITUAL CARE - Pre-Surgery Assessment: Pt in bed. Pt's at bedside. Pt reported supportive attention from family and friends. Intervention: Director Consumer Affairs provided pastoral presence, hospitality, and sympathetic listening. Acquainted pt with availability of supervisor doping while hospitalized. Outcome: Pt expressed appreciation for visit. No need for follow up indicated at this time. SAM [facility]lain Spiritual Care Department O: [phone]
== END ==
LOC: OR 05:55 → RAD 05:55 → EDSTATUS 08:00
PROVIDERS: ATTEND Urology
DX: Z01.818 Encounter for other preprocedural examination (principal); R31.29 Other microscopic hematuria; N13.30 Unspecified hydronephrosis; Z53.8 Procedure and treatment not carried out for other reasons; Z11.59 Encounter for screening for other viral diseases
CPT/HCPCS: 36415; 80048; 85025; 87635; 93005; J0696

== ENCOUNTER 2020-04-10 11:53 | Observation (INO) | payer MEDICARE, OTHER ==
[~2020-04-10] VITALS: Ht 167.6 cm; Wt 78.9 kg
[~2020-04-10 11:53] MED LIST changes: -CEFTRIAXONE SOD 1 GM/NS 50 ML 50 ML IV ONE
--- NOTE | 2020-04-10 13:39 | Emergency Department Note ---
History of Present Illnes History of Present Illness Chief Complaint: Genitourinary History of Present Illness This is a 69 year old male . Chief Complaint Comment SENT BY DR. GE. X 2 DAYS NO DRAINAGE FROM RIGHT NEPHROSTOMY TUBE. NOTICED SLIGHT KINK IN TUBING. DENIES ANY PAIN AT INSERTION SITE ONLY SLIGHT ITCHING. DRSG INTACT. FLUSHED WITH SALINE, WITH NO RESULTS Historian: Patient Arrival Mode: Car Additional Treatment [employer] WORKER: NONE Past Medical/Family History Physician Review I have reviewed the patient's past medical and family history. Any updates have been documented here. Past Medical History Recent Fever: No Clinical Suspicion of Infectio: No New/Unexplained Change in Ment: No Past Medical History: Hypertension, Kidney Stones, GERD, Hyperlipedemia Other Medical History: BPH Other Surgery: LITHOTRIPSY RIGHT NEPHROSTOMY TUBE Other Last Tetanus: unknown Physical Exam Related Data Allergies: Coded Allergies: No Known Allergies (Unverified , 04/10/20) Triage Vital Signs Vital Signs Date Time Temp Pulse Resp B/P (MAP) Pulse Ox O2 Delivery O2 Flow Rate FiO2 04/10/20 12:40 97.8 84 18 140/79 98 Room Air Physical Exam CONSTITUTIONAL HENT EYES NECK PULMONARY CARDIOVASCULAR GASTROINTESTINAL GENITOURINARY SKIN MUSCULOSKELETAL NEUROLOGICAL PSYCHOLOGICAL Assessment & Plan Last Vital Signs Date Time Temp Pulse Resp B/P (MAP) Pulse Ox O2 Delivery O2 Flow Rate FiO2 04/10/20 12:40 97.8 84 18 140/79 98 Room Air Home Meds Reported Medications Finasteride (FINASTERIDE) 5 Mg Tablet, 5 MG PO DAILY, #30 TAB 11/23/19 Lovastatin (LOVASTATIN) 40 Mg Tablet, 40 MG PO HS THERAPEUTICALLY SUBSTITUTED WITH SIMVASTATIN 20MG 10/30/19 Tamsulosin Hcl* (FLOMAX*) 0.4 Mg Cap, 0.4 MG PO DAILY, #30 CAP 10/30/19 Omeprazole (OMEPRAZOLE) 40 Mg Capsule.dr, 40 MG PO DAILY 10/30/19 Triamterene/Hydrochlorothiazid (TRIAMTERENE-HCTZ 75-50 MG TAB) 1 Each Tablet, PO DAILY 10/30/19 JACOBY BLACK DO Apr 10, 2020 13:39
[2020-04-10 14:22] LABS: BASOPHILS # (AUTO) 0.1 (0.0-0.1); BASOPHILS % 0.9 % (0.0-1.0); EOSINOPHILS # (AUTO) 0.2 (0.0-0.4); EOSINOPHILS % 1.7 % (0.0-6.0); HEMATOCRIT 39.5 % (38.2-49.6); HEMOGLOBIN 12.9 g/dL (14.0-18.0); LYMPHOCYTES # (AUTO) 1.8 (1.0-3.2); LYMPHOCYTES % 20.3 % (18.0-39.1); MEAN CORPUSCULAR HEMOGLOBIN 27.4 pg (28-32); MEAN CORPUSCULAR HGB CONC 32.7 g/dL (31-35); MONOCYTES # (AUTO) 0.9 (0.2-0.8); MONOCYTES % 10.3 % (4.4-11.3); NEUTROPHILS # (AUTO) 5.8 (2.1-6.9); NEUTROPHILS % 66.3 % (38.7-80.0); PLATELET COUNT 382 x10e3/uL (140-360); RED CELL DISTRIBUTION WIDTH 14.4 % (11.7-14.4)
[2020-04-10 14:42] LABS: ALANINE AMINOTRANSFERASE 21 IU/L (0-55); ALBUMIN 4.2 g/dL (3.5-5.0); ALBUMIN/GLOBULIN RATIO 1.2 (0.8-2.0); ALKALINE PHOSPHATASE 117 IU/L (40-150); ANION GAP 18.5 mmol/L (8-16); BLOOD UREA NITROGEN 12 mg/dL (7-26); BUN/CREATININE RATIO 15 (6-25); CALCIUM 9.2 mg/dL (8.4-10.2); CARBON DIOXIDE 20 mmol/L (22-29); CHLORIDE 104 mmol/L (98-107); EST GLOMERULAR FILTRATION RATE > 60 ML/MIN (60-); GLUCOSE 91 mg/dL (74-118); POTASSIUM 3.5 mmol/L (3.5-5.1); SODIUM 139 mmol/L (136-145)
[2020-04-10] MEDS ORDERED: ONDANSETRON HCL INJ 2MG/ML 2ML 2 MG/ML VIAL IV PRN (15:15)
[2020-04-10] MEDS ORDERED: MORPHINE SULFATE INJ 4 MG/ML INJ 1ML IV PRN (15:15)
[2020-04-10] MEDS ORDERED: CEFTRIAXONE SOD 1 GM/NS 50 ML 50 ML IV ONE (15:15)
--- OUTSIDE RECORDS SUMMARY | 2020-04-10 15:18 | XMS REPORT | Continuity of Care Document ---
Author Author [facility] t Organization [facility] Address [address] [place] [address] Phone Unavailable Care Team Providers Care Sock Examiner Name Role Phone RICARDO Aguilera M.D. ENMA PCP Megha MOTA, Sheela Attphys Unavailable Subhash GARG Amr Attphys Sebastian WATSON, Shala Attphys Kemi Cee Attphys Lab, Fam Pob I Adc Attphys Unavailable JEAN-PIERRE GE Attphys Unavailable JÚNIOR PEPE Attphys Unavailable Shala Cortes MD Admphys JÚNIOR PEPE Admphys Unavailable Payers Payer Name Policy Type Policy Number Effective Date Expiration Date Sylwia mcdonald [employer] [place] [facility] 2019 00:00:00 [facility] Problems Condition Name Condition Details Condition Category Status Onset Date Resolution Date Last Treatment Date Treating Clinician Comments Source Hydronephrosis with urinary obstruction due to uretera l calculus Ureteral stone with hydronephrosis Problem Active [facility] Retention of urine Urinary retention Problem Active [facility] Allergies, Adverse Reactions, Alerts Allergy Name Allergy Type Status Severity Reaction(s) Onset Date Inacti ve Date Treating Clinician Comments Source No Known Allergies DA Active U 2020-02-18 00:00:00 [facility] Social History Social Habit Start Date Stop Date Quantity Comments Source Sex Assigned At 1950 00:00:00 1950 00:00:00 Male [facility] Medications Ordered Medication Name Filled Medication Name Start Date Stop Da te Current Medication? Ordering Clinician Indication Dosage Frequency Signature (SIG) Comments Components Source Finasteride Finasteride Yes 5 Daily [facility] Lovastatin Lovastatin Yes 40 Bedtime [facility] Omeprazole Omeprazole Yes 40 Daily CH I [facility] Tamsulosin Hcl (Flomax*) 0.4 Mg CAP Tamsulosin Hcl (Flomax*) 0.4 Mg C AP Yes .4 Daily [facility] Triamterene/Hydrochlorothiazid (Triamterene-Hctz 75-50 Mg Tab) 1 Each TABLET Triamterene/Hydrochlorothiazid (Triamterene-Hctz 75-50 Mg Tab) 1 Each TABLET Yes Bedtime [facility] Vital Signs Vital Name Observation Time Observation Value Comments Source Weight 2019-12-03 17:21:00 174 [lb_av] [facility] BMI (Body Mass Index) 2019-12-03 17:21:00 28.1 kg/m2 [facility] Body Temperature 2019-11-28 07:43:00 98.8 [degF] [facility] Procedures Procedure Date / Time Performed Performing Clinician [facility] e CREATE PASSAGE TO KIDNEY 2019-11-07 00:00:[address] [facility] [address] of abdomen and pelvis without contrast 2019-11-07 00:00:00 [facility] Echo guide for biopsy 2019-11-07 00:00:00 [facility] FRAGMENTING OF KIDNEY STONE 2019-11-02 00:00:00 [facility] X-ray of chest, two views 2019-10-31 00:00:00 JEAN-PIERRE GE I [facility] Plan of Care Planned Activity Planned Date Details Comments Source Instructions [facility] C[facility]ter [facility] Instructions Urinary Retention [facility] Encounters Start Date/Time End Date/Time Encounter Type Admission Type Attendi [facility] Care Department Encounter ID Source 2020-03-04 00:00:00 2020-03-04 00:00:00 Transition of Care Sheela Cleveland [id number] 2020-02-19 17:39:06 2020-03-03 15:45:00 Hospital Encounter Subhash Shala Bobo [facility] ([facility]) [id number] 2020-02-17 00:00:00 2020-02-17 00:00:00 Telephone Kemi Morales Formerly [facility] [id number] 2020-02-12 11:25:27 2020-02-12 11:45:27 Laboratory Only Denise sterling, Rolo Fam Pob I Formerly [facility] [id number] 2019-12-03 16:43:00 2019-12-03 19:03:[address] [facility] [id number] [facility] 2019-11-28 05:02:00 2019-11-28 05:02:00 Registered Surgical Day Care [facility] [id number] [facility] 2019-11-07 10:27:00 2019-11-08 10:45:00 Discharged Inpatient (obs) [address] [facility] [id number] I [facility] 2019-11-02 05:10:00 2019-11-02 05:10:00 Registered Surgical Day Car JEAN-PIERRE Puga [facility] [id number] I [facility] Results Test Description Test Time Test Comments Results Result Comments Source - US RETROPERITONEAL COM 2020-04-05 19:40:00 N jomar: LAVINIA AUGUSTIN [facility] [place] : 1950 Age/S: 69 / M [address] [place], [place] [address]vd Unit #: [id number] Loc: [place] [address] Phys: Walker Quick MD Acct: [id number] Dis Date: Status: REG ER PHONE #: [phone] Exam Date: 04/05/20201938 FAX #: [phone] Reason: minimal nephrostomy output EXAMS: CPT CODE: [id number] RETROPERITONEAL COM [id number] Procedure: Renal Ultrasound. Clinical Indication: Decreased right nephrostomy tube output. Comparison: CT scan the abdomen and pelvis 04/02/2020. TECHNIQUE: Multiple longitudinal and transverse real time sonographic images of the kidneys and urinary bladder are obtained. FINDINGS: KIDNEYS: The right kidney measures 7.6 cm. The left kidney measures 11.5 cm. The kidneys are normal in size, shape, co ntour, and position. The cortices are normal in thickness and the corticomedullary differentiation is maintained. The right kidney was not well-seen secondary to overlying bandage material however there is minimal right hydronephrosis. BLADDER: Scanning through the pelvis reveals the bladder to be partially distended with anechoic urine. The visualized portions of the abdominal aorta, IVC and proximal common iliac arteries are within normal limits. IMPRESSION: 1. Minimal right hydronephrosis. SL: OCO-H at 1940 Reported and signed by: Reymundo Arauz M.D. PAGE 1 Signed Report (CONTINUED) Name: [facility] 1950 Age/S: 69 / M [address] [place], [place] [address]vd Unit #: [id number] Loc: [place] [address] Phys: Walker Quick MD Acct: [id number] Dis Date: Status: REG ER PHONE #: [phone] Exam Date: 04/05/2020 193 FAX #: [phone] Reason: minimal nephrostomy output EXAMS: CPT CODE: [id number] US [facility]centuate COM [id number] <Continued> CC: Walker Quick MD Technologist: Tisha Cary RDMS(BR)(AB) Trnscb Date/Time: 04/05/2020 (1939) [email or web address] Orig Print D/T: S: 04/05/2020 (1942) Probe: PAGE 2 Signed Report - NM RENAL FUNCT W/PHA SGL 2020-04-02 11:13:00 FAX: Dharmesh Nguyen MD [phone] [place]: St: REG -- Name: LAVINIA AUGUSTIN [facility] : 1950 Age/S: 69/M [address] [place] [address] Unit #: [id number] Loc: [place] [address] Phys: Dharmesh Ruiz MD Acct: [id number] Dis Date: Status: REG CLI PHONE #: [phone] Exam Date: 04/02/2020 0945 FAX #: [phone] Reason: CALCULIS URETR EXAMS: CPT CODE: [id number] NM RENAL FUNCT W/PHA SGL 24404 NUCLEAR MEDICINE RENAL BLOOD FLOW AND FUNCTION WITH MAG3 AND DIURETIC LASIX RENOGRAM 04/02/2020 AT 0945 HOURS. CLINICAL HISTORY: Ureteral calculus. COMPARISON STUDIES: Abdomen CT from the same day. RADIOPHARMACEUTICAL:10 mCi of 99 M technetium MAG3 intravenously. 40 mg of Lasix were then administered intravenously at 28 minutes and diuretic time/activity curves for both kidneys were obtained. FINDINGS: Posterior blood flow and function images of the kidneys were obtained. Blood flow images demonstrate symmetric bilateral renal parenchymal perfusion with early visualization of renal activity after approximately 2 seconds after visualization of aortic activity. Asymme trically increased radiotracer retention is noted in the right renal cortex compared to the left. Estimated time to peak activity for the right and left kidney is 35 and 5 minutes, respectively. Reference range is within 3-5 minutes. Estimated differential uptake for the right and left kidney is 42% and 58%, respectively. Asymmetrically delayed right renal radiotracer excretion with prolonged cortical radial tracer retention was noted before and after diuretic administration. Total estimated T-1/2 for the right and left kidney is 37 and 7 minutes, respectively. Reference range is between 8 and 12 minutes. IMPRESSION: 1. Obstructed, mildly dilated right renal collecting system with progressive cortical/collecting system radiotracer retention and impaired diuretic response. 2. Diuretic T-1/2 for the right and left kidney estimated at 37 and 7 minutes, respectively. 3. Differential radiotracer uptake for the right and left kidney is 42 and 58%, respectively. 4. ERPF for the right and left kidney is 126 and 178 mL/min, respectively. SL: [id number] PAGE 1 Signed Report (CONTINUED) FAX: Dharmesh Nguyen MD [phone] [place]: St: REG Name: LAVINIA AUGUSTIN [facility] : 1950 Age/S: 69/M [address] [place] [address] Blvd Unit #: [id number] Loc: [place] [address] Phys: Dharmesh Ruiz MD Acct: [id number] Dis Date: Status: REG CLI PHONE #: [phone] Exam Date: 04/02/2020 0945 FAX #: [phone] Reason: CALCULIS URETR EXAMS: CPT CODE: [id number] NM RENAL FUNCT W/PHA SGL 73422 <Continued> at 1113 Reported and signed by: Jason George M.D. CC: Dharmesh Ruiz MD Technologist: Desi Reis, RT(N) [facility]; ... Trnscrd Date/Time/By: 04/02/2020 (1113) : By: [email or web address] Orig Print D/T: S: 04/02/2020 (1116) PAGE 2 Signed Report - CT ABD PELVIS W/O CONT 2020-04-02 10:18:00 N jomar: LAVINIA AUGUSTIN [facility] : 1950 Age/S: 69 / M [address] [place] [address] Unit #: [id number] Loc: [place] [address] Phys: Dharmesh Ruiz MD Acct: [id number] Dis Date: Status: REG CLI PHONE #: [phone] Exam Date: 04/02/2020 0753 FAX #: [phone] Reason: CALCULIS URETR EXAMS: CPT CODE: [id number] CT ABD PELVIS W/O CONT 18436 Clinical Indication: Chronic right flank pain, CALCULUS URETR, DATE: 04/02/2020 7:30 AM : 1950; Age: 69 years y/o Male Comparison: None. TECHNIQUE: Volumetric CT acquisition of the abdomen and pelvis without contrast. Axial, coronal and sagittal reconstructions. DLP: 331 mGy-cm CT imaging performed at this location utilizes radiation dose optimization techniques which include one or more of the following: -Automated exposure control - Adjustment of the mA and/or kV according to patient size -Use of iterative reconstruction technique FINDINGS: Evaluation of the solid organs and vascular structures is limited without intravenous contrast. Lower thorax: Moderate groundglass changes. 6 mm noncalcified nodule in the left lung base. Liver: Normal. Gallbladder: No calcified stones or wall thickening. Adrenals: Normal. Kidneys and ureters: Small simple cyst involving the lower pole of the right kidney. Mild fullness of the right renal upper pole calyx. Right nephrostomy tube is noted in place. Obstructing 1.3 x 1.8 cm stone is seen involving the right proximal ureter near the ureteropelvic junction. No left nephrolithiasis or hydronephrosis. Spleen: Normal. Pancreas: Normal. Visualized Gastrointestinal tract: Grossly unremarkable. No obstruction. Peritoneum, mesentery and retroperitoneum: No free air, lymphadenopathy, ascites or loculated fluid. Reproductive organs: Prostate and seminal vesicles are unremarkable. PAGE 1 Signed Report (CONTINUED) Name: LAVINIA AUGUSTIN [facility] Adin Garvey : 1950 Age/S: 69 / M [address] [place] [address] Unit #: [id number] Loc: [place] [address] Phys: Dharmesh Ruiz MD Acct: [id number] Dis Date: Status: REG CLI PHONE #: [phone] Exam Date: 04/02/2020 0753 FAX #: [phone] Reason: CALCULIS URETR EXAMS: CPT CODE: [id number] CT ABD PELVIS W/O CONT 13636 <Continued> Bladder: Decompressed or not fully distended. Soft tissues: Normal. Bones: No acute abnormality. Age-related degenerative findings. IMPRESSION: 1. Right lower pole nephrostomy tube is noted in place with mild fullness of the right upper pole calyces. No nephrolithiasis bilaterally. Obstructing 1.3 x 1.8 cm stone in the right proximal ureter near the ureteral pelvic junction. 2. Moderate groundglass changes in the visualized lung bases, which may represent infectious or inflammatory process. Viral pneumonia is not differential. 3. 6 mm left lung base noncalcified nodule. If the patient has a history of smoking or other risk factor to increase their risk of malignancy, then follow-up CT at 6-12 months and 18-24 months is recommended. If the patient has no such risk factors, then follow-up chest CT recommended at 6-12 months with consideration for CT at 18-24 months. Reference: Guidelines for Management of Incidental Pulmonary Nodules Detected on CT Images: From the Fleischner Society 2017. FOR INTERNAL CODING PURPOSES ONLY RESULT CODE: NOD SL: [id number] at 1018 Reported and signed by: Trice Anders D.O. CC: Dharmesh Ruiz MD Technologist:Daljit Mclaughlin, RT(R) CTDI: DLP: Trnscb Date/Time: 04/02/2020 (1018) [email or web address] Orig Print D/T: S: 04/02/2020 (3986) PAGE 2 Signed Report B-TYPE NATRIURETIC PEPTIDE 2020-02-18 12:00:00 Test Item B-TYPE NATRIURETIC PEPTIDE (test code = BNP) 66.2 PG/ML 0-100 N COMPREHENSIVE METABOLIC [id number] 11:34:00* Test Item Value Reference Range Interpretation Comments SODIUM (test code = NA) 137 mEq/L 134-147 N POTASSIUM (test code = K) 3.9 mEq/L 3.4-5.0 N CHLORIDE (test code = CL) 105 mEq/L 100-108 N CARBON DIOXIDE (test code = CO2) 28 mEq/L 21-33 N ANION GAP (test code = GAP) 8 0-20 N GLUCOSE (test code = GLU) 104 mg/dL 70-110 N BLOOD UREA NITROGEN (test code = BUN) 21 mg/dL 7-18 H GLOMERULAR FILTRATION RATE (test code = GFR) 95.6 70-80 H Units of measure = ml/min/1.73 m2 CREATININE (test code = CREAT) 0.8 mg/dL 0.6-1.3 N TOTAL PROTEIN (test code = PROT) 7.7 g/dL 6.4-8.2 N ALBUMIN (test code = ALB) 2.90 g/dL 3.4-5.0 L CALCIUM (test code = CA) 9.5 mg/dL 8.0-10.5 N BILIRUBIN TOTAL (test code = BILT) 0.4 MG/DL <1.5 N SGOT/AST (test code = AST) 35 IUnit/L 15-37 N SGPT/ALT (test code = ALT) 40 IUnit/L 15-65 N ALKALINE PHOSPHATASE TOTAL (test code = ALKP) 129 IUnit/L 20-125 H [id number] 11:34:00* Test Item Value Reference Range Interpretation Comments MAGNESIUM (test code = MAG) 2.50 mg/dL 1.8-2.4 H [id number] 11:34:00* Test Item Value Reference Range Interpretation Comments TROPONIN-I (test code = TROPI) < 0.015 ng/mL 0.000-0.045 N Negative: <= 0.045 Positive: >= 0.046 Correlation with serial results, other cardiac markers andclinical findings is necessary to determine the clinicalsignificance of this result. Results using different methodologies should not be comparedto one another as quantitative results may vary by method. COMPREHENSIVE METABOLIC [id number] 11:23:00* Test Item Value Reference Range Interpretation Comments SODIUM (test code = NA) mEq/L 134-147 POTASSIUM (test code = K) mEq/L 3.4-5.0 CHLORIDE (test code = CL) mEq/L 100-108 CARBON DIOXIDE (test code = CO2) mEq/L 21-33 ANION GAP (test code = GAP) 0-20 GLUCOSE (test code = GLU) mg/dL 70-110 BLOOD UREA NITROGEN (test code = BUN) mg/dL 7-18 GLOMERULAR FILTRATION RATE (test code = GFR) 70-80 CREATININE (test code = CREAT) mg/dL 0.6-1.3 TOTAL PROTEIN (test code = PROT) g/dL 6.4-8.2 ALBUMIN (test code = ALB) g/dL 3.4-5.0 CALCIUM (test code = CA) mg/dL 8.0-10.5 BILIRUBIN TOTAL (test code = BILT) MG/DL <1.5 SGOT/AST (test code = AST) IUnit/L 15-37 SGPT/ALT (test code = ALT) IUnit/L 15-65 ALKALINE PHOSPHATASE TOTAL (test code = ALKP) IUnit/L 20-125 [id number] 11:23:00* Test Item Value Reference Range Interpretation Comments MAGNESIUM (test code = MAG) mg/dL 1.8-2.4 [id number] 11:23:00* Test Item Value Reference Range Interpretation Comments TROPONIN-I (test code = TROPI) < 0.015 ng/mL 0.000-0.045 N Negative: <= 0.045 Positive: >= 0.046 Correlation with serial results, other cardiac markers andclinical findings is necessary to determine the clinicalsignificance of this result. Results using different methodologies should not be comparedto one another as quantitative results may vary by method. CBC W/AUTO [id number] 11:23:00* Test Item Value Reference Range Interpretation Comments WHITE BLOOD CELL (test code = WBC) 16.54 x10 3/uL 4.5-11.0 H RED BLOOD CELL (test code = RBC) 5.21 x10 6/uL 4.00-5.60 N HEMOGLOBIN (test code = HGB) 14.9 g/dL 12.5-16.9 N HEMATOCRIT (test code = HCT) 45.3 % 37.5-50.7 N MEAN CELL VOLUME (test code = MCV) 86.9 fL 81.0-99.0 N MEAN CELL HGB (test code = MCH) 28.6 pg 27.0-33.0 N MEAN CELL HGB CONCETRATION (test code = MCHC) 32.9 g/dL 33.0-37. 0 L RED CELL DISTRIBUTION WIDTH CV (test code = RDW) 14.5 % 11.5- 14.5 N RED CELL DISTRIBUTION WIDTH SD (test code = RDW-SD) 46.0 fL 37 .0-54.0 N PLATELET COUNT (test code = PLT) 275 x10 3/uL 150-400 N MEAN PLATELET VOLUME (test code = MPV) 10.7 fL 7.0-9.0 H NEUTROPHIL % (test code = NT%) 87.8 % 56.0-77.0 H IMMATURE GRANULOCYTE % (test code = IG%) 2.2 % 0.0-2.0 H LYMPHOCYTE % (test code = LY%) 6.7 % 14.0-32.0 L MONOCYTE % (test code = MO%) 3.1 % 4.8-9.0 L EOSINOPHIL % (test code = EO%) 0.0 % 0.3-3.7 L BASOPHIL % (test code = BA%) 0.2 % 0.0-2.0 N NUCLEATED RBC % (test code = NRBC%) 0.0 % 0-0 N NEUTROPHIL # (test code = NT#) 14.53 x10 3/uL 2.0-7.6 H IMMATURE GRANULOCYTE # (test code = IG#) 0.36 x10 3/uL 0.00-0.03 H LYMPHOCYTE # (test code = LY#) 1.11 x10 3/uL 1.0-3.8 N MONOCYTE # (test code = MO#) 0.51 x10 3/uL 0.1-0.8 N EOSINOPHIL # (test code = EO#) 0.00 x10 3/uL 0.0-0.2 N BASOPHIL # (test code = BA#) 0.03 x10 3/uL 0.0-0.2 N NUCLEATED RBC # (test code = NRBC#) 0.00 x10 3/uL 0.0-0.1 N MANUAL DIFF REQUIRED (test code = MDIFF) NO - XR CHEST 1 [id number] 11:16:00 FAX: Araceli León MD [phone] [place]: St: PRE Name: Galo GIBSONIANICKLAVINIA [facility] : [birth year] Age/S: 69/M [address] [place] [address] Bl Unit #: [id number] Loc: [place] [address] Phys: Araceli Singleton MD Acct: [id number] Dis Date: Status: PRE ER PHONE #: [phone] Exam Date: 02/18/2020 1056 FAX #: [phone] Reason: ACUTE SOB EXAMS: CPT CODE: [id number] XR CHEST 1 V 32099 EXAM: XR CHEST 1 VIEW DATE: 02/18/2020 10:08 AM : 1950; Age: 69 years y/o Male INDICATION: ACUTE SOB COMPARISON: None. TECHNIQUE: AP chest. IMPRESSION: Lines, tubes and hardwa re: None. Heart, mediastinum and lungs: The heart size is norm al for technique. The mediastinal contours are normal. Moderate ill-defi gabe patchy opacities are seen within bilateral lungs, which may represen t pneumonia and/or edema. No pleural effusion. Viral pneumonia is in differential. SL: [id number] at 1116 Reported and signed by: Trice Anders D.O. CC: Araceli Singleton MD Technologist: RT Felicia(Bere) Trnscrd Date/Time/By: 02/18/2020 (1116) : By: [email or web address] Orig Print D/T: S: 02/18/2020 (1119) PAGE 1 Signed Report IR [id number] 10:34:00 [place] [address] Patient Name: LAVINIA AUGUSTIN MR #: [id number] : 1950 Age/Sex: 69/M Req #: [id number] Adm Physician: Ordered by: JEAN-PIERRE GE MD Re port #: [id number] Location: OR Room/ Bed: Procedure: DX/IR CONSULT Exam Date: Exam Time: REPORT STATUS: Signed Right percutaneous prostate catheter exchange. History: Obstructive right- sided hydronephrosis, status post percutaneous nephrostomy catheter placement. Modality: Pleuroscopy Sedation: Versed 1 mg and fentanyl 50 mcg was given intravenously for conscious sedation . Vital signs were monitored throughout the procedure by a nurse, and remaine d stable. Physician intra-service time was 20. Fluoroscopy Time: 1.3 mi n. Reference Air Kerma (Ka, r): 11.1 mGy. Approach: The indwelling 10 Slovenian) the prostate catheter Estimat ed blood loss: < 5 cc. Specimen: None. flat folding machine operator: Baltazar Trotter MD. Technique: Informed written consent was obtained. Discussion of risks, benefits, and alternatives were made with the patient. The patient expressed understanding and agreed to proceed. A universal timeout was performed prior to starting the procedure. All elements maximal sterile barrier technique was utilized for this procedure, including utilization of sterile scrub solution for skin prep, a large sterile sheet to cover the areas of the patient that were not prepped, and hand hygiene, mask, head covering, and sterile gown for performing radiologist and scrub technologist. Contrast was injected via the indwelling right nephrostomy catheter demonstrating catheter now terminating within a right calyx. Obstructive right ureteral stone again noted. 1% lidocaine was used for local anesthesia. The existing catheter was cut and a 0.035 Glidewire was advanced through the indwelling catheter into the proximal right ureter. The existing catheter was removed over wire. The Glidewire was exchanged for a 0.035 Bentson wire using a 4 Slovenian Olson catheter. A new 10 Slovenian nephrostomy catheter was then advanced over wire with pigtail terminating within the right renal pelvis. Contrast injection confirmed position. The catheter was fixed to the skin with silk suture. A sterile dressing was applied. Impression: Successful fluoroscopic guided right percutaneous nephrostomy catheter exchange 10 Slovenian catheter as detailed abo noe. Signed by: Dr. Baltazar Trotter MD on 12/31/2019 10:38 A M Dictated By: BALTAZAR TROTTER MD 1038 Transcribed By: ESTHER on 12/31/19 1038 COPY TO: JEAN-PIERRE GREER MD PCNU [id number] 10:34:00 [place] [address] Patient Name: LAVINIA AUGUSTIN MR #: [id number] : 1950 Age/Sex: 69/M Req #: [id number] Adm Physician: Ordered by: JEAN-PIERRE GE MD Report #: [id number] Location: OR Room/Bed: Procedure: 1347-1447 IR/PCNU EXCHA NGE Exam Date: Exam Time: REPORT STATUS: Signed Right percutaneous prostate cathet er exchange. History: Obstructive rig ht-sided hydronephrosis, status post percutaneous nephrostomy catheter placeme nt. Modality: Pleuroscopy Sedatio n: Versed 1 mg and fentanyl 50 mcg was given intravenously for conscious sedat ion. Vital signs were monitored throughout the procedure by a nurse, and qasim ined stable. Physician intra-service time was 20. Fluoroscopy Time: 1.3 min. Reference Air Kerma (Ka, r): 11.1 mGy. Approach: The indwelling 10 Slovenian) the prostate catheter Domitila mated blood loss: < 5 cc. Specimen: None. flat folding machine operator: Baltazar Trotter MD. Technique: Informed written consent was obtained. Discussion of risks, benefits, and alternatives were made with the patient. The patient expressed understanding and agreed to proceed. A universal timeout was performed prior to starting the procedure. All elements maximal sterile barrier technique was utilized for this procedure, including utilization of sterile scrub solution for skin prep, a large sterile sheet to cover the areas of the patient that were not prepped, and hand hygiene, mask, head covering, and sterile gown for performing radiologist and scrub technologist. Contrast was injected via the indwelling right nephrostomy catheter demonstrating catheter now terminating within a right calyx. Obstructive right ureteral stone again noted. 1% lidocaine was used for local anesthesia. The existing catheter was cut and a 0.035 Glidewire was advanced through the indwelling catheter into the proximal right ureter. The existing catheter was removed over wire. The Glidewire was exchanged for a 0.035 Bentson wire using a 4 Slovenian Olson catheter. A new 10 Slovenian nephrostomy catheter was then advanced over wire with pigtail terminating within the right renal pelvis. Contrast injection confirmed position. The catheter was fixed to the skin with silk suture. A sterile dressing was applied. Impression: Successful fluoroscopic guided right percutaneous nephrostomy catheter exchange 10 Slovenian catheter as detailed abo ve. Signed by: Dr. Baltazar Trotter MD on 12/31/2019 10:38 A M Dictated By: BALTAZAR TROTTER MD 1038 Transcribed By: ESTHER on 12/31/19 1038 COPY TO: JEAN-PIERRE GREER MD Urine color hodhnknwfovuh1567-93-18 17:30:00* Test Item Value Reference Range Interpretation Comments Urine Color (test code = 5778-6) YELLOW YELLOW [facility] nwbpphv9973-72-19 17:30:00* Test Item Value Reference Range Interpretation Comments Urine Clarity (test code = 97416-7) SL CLOUDY CLEAR [facility] U[facility] by Test strip 2019-12-03 17:30:00* Test Item Value Reference Range Interpretation Comments Urine Specific Burke (test code = 5811-5) 1.020 1.010-1.02 5 [facility] CenterUrine pH measurement by automated test kahrw7004-53-51 17:30:00* Test Item Value Reference Range Interpretation Comments Urine pH (test code = 20694-6) 6.5 5-7 [facility] CenterUrine leukocyte esterase detection by afadpgjk9616-42-78 17:30:00* Test Item Value Reference Range Interpretation Comments Urine Leukocyte Esterase (test code = 5799-2) SMALL NEGATIVE [facility] CenterUrine nitrite ochzsdhmi6293-80-34 17:30:00* Test Item Value Reference Range Interpretation Comments Urine Nitrite (test code = 46234-4) NEGATIVE NEGATIVE [facility] CenterUrine protein measurement by test strip (mass/volume)2019-12-03 17:30:00* Test Item Value Reference Range Interpretation Comments Urine Protein (test code = 5804-0) NEGATIVE NEGATIVE [facility] CenterUrine glucose sqdasjavf8373-39-84 17:30:00* Test Item Value Reference Range Interpretation Comments Urine Glucose (UA) (test code = 2349-9) NEGATIVE NEGATIVE [facility] CenterUrine ketones detection by automated test bvaot2404-78-36 17:30:00* Test Item Value Reference Range Interpretation Comments Urine Ketones (test code = 11911-3) NEGATIVE NEGATIVE [facility] CenterUrine urobilinogen measurement by test strip (mass/volume)2019-12-03 17:30:00* Test Item Value Reference Range Interpretation Comments Urine Urobilinogen (test code = 51009-9) 0.2 0.2-1 [facility] CenterUrine total bilirubin measurement (mass/volume)2019-12-03 17:30:00* Test Item Value Reference Range Interpretation Comments Urine Bilirubin (test code = 1978-6) NEGATIVE NEGATIVE [facility] CenterUrine erythrocytes zlpyucugu7261-00-71 17:30:00* Test Item Value Reference Range Interpretation Comments Urine Blood (test code = 09989-7) MODERATE NEGATIVE [facility] CenterAutomated urine sediment leukocyte count by microscopy (number/high power field)2019-12-03 17:30:00* Test Item Value Reference Range Interpretation Comments Urine WBC (test code = 5821-4) >50 0-5 [facility] CenterErythrocytes detection in urine sediment by light azjsachxbb3765-54-48 17:30:00* Test Item Value Reference Range Interpretation Comments Urine RBC (test code = 35528-5) >50 0-5 [facility] CenterBacteria detection in urine sediment by light mmatdmusrk8177-54-22 17:30:00* Test Item Value Reference Range Interpretation Comments Urine Bacteria (test code = 79443-6) MODERATE NONE [facility] CenterEpithelial cells detection in urine sediment by light xabsnrzfno4495-71-86 17:30:00* Test Item Value Reference Range Interpretation Comments Urine Epithelial Cells (test code = 08461-8) FEW NONE [facility] CenterFluoroscopic procedure less than one hour avzksesd3241-97-51 08:20:00* Test Item Value Reference Range Interpretation Comments Coronavirus (PCR) (test code = Coronavirus (PCR)) NOT DETECTED NOTD ETECTED SARS-COV-2 (COVID19), HIGHRISK, RT-PCRNegative results do not preclude SARS-CoV- 2 infection and should not be used as the sole basis for patient management deci sions. Negative results must be combined with clinical observations, patient his tory, and epidemiological information. Optimum specimen types and timing for pea k viral levels during infections caused by SARS-CoV-2 have not been determined. Collection of multiple specimens ot types of specimens may be necessary to detec t virus. Improper specimen collection and handling, sequence variability under p rimers/probes, or organism present below the limit of detection may lead to fals e negative results. Positive and negative predictive values of testing are highl y dependent on prevalance. False negative test results are more likely when prev alence is high.The expected result is negative (not detected).The SARS-CoV-2 mitra t is intended for the qualitative detection of nucleic acid from SARS-CoV-2 in n asopharyngeal and oropharyngeal swab samples from patients who meet COVID-19 cli nical and or epidemiological criteria. For lower respiratory tract specimens, th e assay is submitted for authoriztion by FDA under an Emergency Use Authorizatio n (EUA). Testing methodology is real time RT-PCR. If received as separate collec tion devices, nasopharygeal and oropharyngeal specimens are combined for analysi s. Additional specimens may be split to a separate accession for analysi and rep orting as this test includes a single unit of service.Test results must be corre lated with clinical presentation and evaluated in the context of other laborator y and epidemiologic data. Test performance can be affected because the epidemiol ogy and clinical spectrum of infection caused by SARS-CoV-2 is not fully known. For example, the optimum types of specimens to collect and when during the cours e of infection these specimens are most likely to contain detectable viral RNA m ay not be known.This test has not been Food and Drug Administration (FDA) cleare d or approved and has been authorized by FDA under an Emergency Use Authorizatio n (EUA). The test is only authorized for the duration of the declaration that ci rcumstances exist justifying the authorization of emergency use of in vitro diag nostic tests for detection and/or diagnosis of SARS-CoV-2 under section 564(b) o f the Act, 21 U.S.C. section 360bbb-3(b)(1), unless the authorization is termina mery or revoked sooner. [facility] are certified under the C linical Laboratory Improvement Amendments of 1988 (CLIA), 42 U.S.C. section 263a , to perform high complexity tests.Specimen sent to [facility] and testing performed by [facility] [address] [place] [address] [phone] Director: Dwayne Isidro M.D.IA # [id number] Medical CenterWhite Blood Sxanj0176-31-37 06:37:00* Test Item Value Reference Range Interpretation Comments White Blood Count (test code = 6690-2) 8.09 4.8-10.8 [facility] CenterRed Blood Ewhxt7967-00-95 06:37:00* Test Item Value Reference Range Interpretation Comments Red Blood Count (test code = 789-8) 4.67 4.3-5.7 [facility] CenterHemoglobin2020-04-09 06:37:00* Test Item Value Reference Range Interpretation Comments Hemoglobin (test code = 96026-4) 13.5 14.0-18.0 L [facility] CenterHematocrit2020-04-09 06:37:00* Test Item Value Reference Range Interpretation Comments Hematocrit (test code = 4544-3) 41.8 38.2-49.6 [facility] CenterMean Corpuscular Einqbm0326-85-20 06:37:00* Test Item Value Reference Range Interpretation Comments Mean Corpuscular Volume (test code = 787-2) 89.5 81-99 [facility] CenterMean Corpuscular Tuutmcnqon3599-20-62 06:37:00* Test Item Value Reference Range Interpretation Comments Mean Corpuscular Hemoglobin (test code = 785-6) 28.9 28-32 [facility] CenterMean Corpuscular Hemoglobin Concent 2019-11-08 06:37:00* Test Item Value Reference Range Interpretation Comments Mean Corpuscular Hemoglobin Concent (test code = 786-4) 32.3 31-35 [facility] CenterRed Cell Distribution Ucwav7324-50-97 06:37:00* Test Item Value Reference Range Interpretation Comments Red Cell Distribution Width (test code = 63298-3) 14.7 11.7 -14.4 H [facility] CenterPlatelet Xbczn8653-61-40 06:37:00* Test Item Value Reference Range Interpretation Comments Platelet Count (test code = 777-3) 252 140-360 [facility] CenterNeutrophils (%) (Auto)2019-11-08 06:37:00 * Test Item Value Reference Range Interpretation Comments Neutrophils (%) (Auto) (test code = 06965-6) 53.6 38.7-80.0 [facility] CenterLymphocytes (%) (Auto)2019-11-08 06:37:00 * Test Item Value Reference Range Interpretation Comments Lymphocytes (%) (Auto) (test code = 736-9) 29.5 18.0-39.1 [facility] CenterMonocytes (%) (Auto)2019-11-08 06:37:00* Test Item Value Reference Range Interpretation Comments Monocytes (%) (Auto) (test code = 5905-5) 13.3 4.4-11.3 H [facility] CenterEosinophils (%) (Auto)2019-11-08 06:37:00 * Test Item Value Reference Range Interpretation Comments Eosinophils (%) (Auto) (test code = 713-8) 2.0 0.0-6.0 [facility] CenterBasophils (%) (Auto)2019-11-08 06:37:00* Test Item Value Reference Range Interpretation Comments Basophils (%) (Auto) (test code = 706-2) 0.7 0.0-1.0 [facility] CenterIM GRANULOCYTES %2019-11-08 06:37:00* Test Item Value Reference Range Interpretation Comments IM GRANULOCYTES % (test code = IM GRANULOCYTES %) 0.9 0.0- 1.0 [facility] CenterNeutrophils # (Auto)2019-11-08 06:37:00* Test Item Value Reference Range Interpretation Comments Neutrophils # (Auto) (test code = 751-8) 4.3 2.1-6.9 [facility] CenterLymphocytes # (Auto)2019-11-08 06:37:00* Test Item Value Reference Range Interpretation Comments Lymphocytes # (Auto) (test code = 17495-8) 2.4 1.0-3.2 [facility] CenterMonocytes # (Auto)2019-11-08 06:37:00* Test Item Value Reference Range Interpretation Comments Monocytes # (Auto) (test code = 742-7) 1.1 0.2-0.8 H [facility] CenterEosinophils # (Auto)2019-11-08 06:37:00* Test Item Value Reference Range Interpretation Comments Eosinophils # (Auto) (test code = 711-2) 0.2 0.0-0.4 [facility] CenterBasophils # (Auto)2019-11-08 06:37:00* Test Item Value Reference Range Interpretation Comments Basophils # (Auto) (test code = 704-7) 0.1 0.0-0.1 [facility] CenterAbsolute Immature Granulocyte (auto 2019-11-08 06:37:00* Test Item Value Reference Range Interpretation Comments Absolute Immature Granulocyte (auto (mitra t code = Absolute Immature Granulocyte (auto) 0.07 0-0.1 [facility] Hospitalodium Roduh7022-83-38 06:24:00* Test Item Value Reference Range Interpretation Comments Sodium Level (test code = 2951-2) 141 136-145 [facility] CenterPotassium Yggeh9687-10-21 06:24:00* Test Item Value Reference Range Interpretation Comments Potassium Level (test code = 2823-3) 4.5 3.5-5.1 [facility] CenterChloride Xvedg8514-60-71 06:24:00* Test Item Value Reference Range Interpretation Comments Chloride Level (test code = 2075-0) 108 98-107 H [facility] CenterCarbon Dioxide Venyv2533-73-73 06:24:00* Test Item Value Reference Range Interpretation Comments Carbon Dioxide Level (test code = 2028-9) 29 22-29 [facility] CenterAnion Qea9871-96-29 06:24:00* Test Item Value Reference Range Interpretation Comments Anion Gap (test code = 01082-5) 8.5 8-16 [facility] CenterBlood Urea Hnjklexs0790-29-83 06:24:00* Test Item Value Reference Range Interpretation Comments Blood Urea Nitrogen (test code = 3094-0) 12 7-26 [facility] CenterCreatinine2020-04-09 06:24:00* Test Item Value Reference Range Interpretation Comments Creatinine (test code = 2160-0) 0.86 0.72-1.25 [facility] CenterBUN/Creatinine Rzdmd2762-45-06 06:24:00* Test Item Value Reference Range Interpretation Comments BUN/Creatinine Ratio (test code = 3097-3) 14 6-25 [facility] CenterEstimat Glomerular Filtration Rate 2019-11-08 06:24:00* Test Item Value Reference Range Interpretation Comments Estimat Glomerular Filtration Rate (test code = 301252428) > 60 >60 Ranges were taken from the National Kidney Disease Education Program and the [facility] Kidney Foundation literature.Reference ranges:60 or greater: Lvuhch50-58 ( for 3 consecutive months): Chronic kidney disease 15 or less: Kidney failureShannon Medical CenterGlucose Gsgto4855-98-42 06:24:00* Test Item Value Reference Range Interpretation Comments Glucose Level (test code = FOB4787) 97 74-118 [facility] CenterCalcium Euapj8323-28-33 06:24:00* Test Item Value Reference Range Interpretation Comments Calcium Level (test code = 05196-0) 8.6 8.4-10.2 [facility] CenterTotal Myecxjebu6163-52-91 06:24:00* Test Item Value Reference Range Interpretation Comments Total Bilirubin (test code = 1975-2) 0.6 0.2-1.2 [facility] CenterAspartate Amino Transf (AST/SGOT) 2019-11-08 06:24:00* Test Item Value Reference Range Interpretation Comments Aspartate Amino Transf (AST/SGOT) (test code = Aspartate Amino Transf (AST/SGOT)) 10 5-34 [facility] CenterAlanine Aminotransferase (ALT/SGPT) 2019-11-08 06:24:00* Test Item Value Reference Range Interpretation Comments Alanine Aminotransferase (ALT/SGPT) (test code = 1742-6) 14 0-55 [facility] CenterTotal Iftaglj5228-23-17 06:24:00* Test Item Value Reference Range Interpretation Comments Total Protein (test code = 2885-2) 6.2 6.5-8.1 L [facility] CenterAlbumin2020-04-09 06:24:00* Test Item Value Reference Range Interpretation Comments Albumin (test code = 1751-7) 3.2 3.5-5.0 L [facility] CenterGlobulin2020-04-09 06:24:00* Test Item Value Reference Range Interpretation Comments Globulin (test code = 02655-2) 3.0 2.3-3.5 [facility] CenterAlbumin/Globulin Pqnjb8171-62-99 06:24:00 * Test Item Value Reference Range Interpretation Comments Albumin/Globulin Ratio (test code = 1759-0) 1.1 0.8-2.0 [facility] CenterAlkaline Cgnydmxlezp6812-41-48 06:24:00* Test Item Value Reference Range Interpretation Comments Alkaline Phosphatase (test code = 6768-6) 83 40-150 [facility] CenterBlood leukocytes automated count (number/volume)2019-11-08 05:35:00* Test Item Value Reference Range Interpretation Comments White Blood Count (test code = 6690-2) 8.09 4.8-10.8 [facility] CenterBlood erythrocytes automated count (number/volume)2019-11-08 05:35:00* Test Item Value Reference Range Interpretation Comments Red Blood Count (test code = 789-8) 4.67 4.3-5.7 [facility] CenterBlood hemoglobin measurement (moles/volume)2019-11-08 05:35:00* Test Item Value Reference Range Interpretation Comments Hemoglobin (test code = 76286-3) 13.5 14.0-18.0 [facility] CenterAutomated blood hematocrit (volume fraction)2019-11-08 05:35:00* Test Item Value Reference Range Interpretation Comments Hematocrit (test code = 4544-3) 41.8 38.2-49.6 [facility] CenterAutomated erythrocyte mean corpuscular lsuqks1232-57-47 05:35:00* Test Item Value Reference Range Interpretation Comments Mean Corpuscular Volume (test code = 787-2) 89.5 81-99 [facility] CenterAutomated erythrocyte mean corpuscular hemoglobin (mass per erythrocyte)2019-11-08 05:35:00* Test Item Value Reference Range Interpretation Comments Mean Corpuscular Hemoglobin (test code = 785-6) 28.9 28-32 [facility] CenterAutomated erythrocyte mean corpuscular hemoglobin concentration measurement (mass/volume)2019-11-08 05:35:00* Test Item Value Reference Range Interpretation Comments Mean Corpuscular Hemoglobin Concent (test code = 786-4) 32.3 31-35 [facility] CenterRDW PaiMs-Oyh8823-66-09 05:35:00* Test Item Value Reference Range Interpretation Comments Red Cell Distribution Width (test code = 90472-1) 14.7 11.7 -14.4 [facility] CenterAutomated blood platelet count (count/volume)2019-11-08 05:35:00* Test Item Value Reference Range Interpretation Comments Platelet Count (test code = 777-3) 252 140-360 [facility]ered blood segmented neutrophil count as percentage of total dqjfqmaorm6896-46-90 05:35:00* Test Item Value Reference Range Interpretation Comments Neutrophils (%) (Auto) (test code = 83552-0) 53.6 38.7-80.0 [facility] CenterAutomated blood lymphocyte count as percentage ot total jdanwqrozl2505-98-59 05:35:00* Test Item Value Reference Range Interpretation Comments Lymphocytes (%) (Auto) (test code = 736-9) 29.5 18.0-39.1 [facility] CenterAutduke university hospitaled blood monocyte count as percentage of total agpluaxdtp8934-46-49 05:35:00* Test Item Value Reference Range Interpretation Comments Monocytes (%) (Auto) (test code = 5905-5) 13.3 4.4-11.3 [facility] CenterAutomated blood eosinophil count as percentage of total eeqqdhlvpc1132-92-48 05:35:00* Test Item Value Reference Range Interpretation Comments Eosinophils (%) (Auto) (test code = 713-8) 2.0 0.0-6.0 [facility] CenterAutomated blood basophil count as percentage of total oqldxovhxz9110-95-83 05:35:00* Test Item Value Reference Range Interpretation Comments Basophils (%) (Auto) (test code = 706-2) 0.7 0.0-1.0 [facility] CenterFluoroscopic procedure less than one hour tmaejbcv2298-46-12 05:35:00* Test Item Value Reference Range Interpretation Comments IM GRANULOCYTES % (test code = IM GRANULOCYTES %) 0.9 0.0- 1.0 [facility] CenterAutomated blood neutrophil count 2019-11-08 05:35:00* Test Item Value Reference Range Interpretation Comments Neutrophils # (Auto) (test code = 751-8) 4.3 2.1-6.9 [facility] CenterBlood lymphocytes count (number/volume) 2019-11-08 05:35:00* Test Item Value Reference Range Interpretation Comments Lymphocytes # (Auto) (test code = 95881-1) 2.4 1.0-3.2 [facility] CenterBlcuyuna regional medical center monocytes automated count (number/volume)2019-11-08 05:35:00* Test Item Value Reference Range Interpretation Comments Monocytes # (Auto) (test code = 742-7) 1.1 0.2-0.8 [facility] CenterAutomated blood eosinophil count 2019-11-08 05:35:00* Test Item Value Reference Range Interpretation Comments Eosinophils # (Auto) (test code = 711-2) 0.2 0.0-0.4 [facility] CenterAutomated blood basophil count (count/volume)2019-11-08 05:35:00* Test Item Value Reference Range Interpretation Comments Basophils # (Auto) (test code = 704-7) 0.1 0.0-0.1 [facility] CenterFluoroscopic procedure less than one hour wwrxcitr3048-39-34 05:35:00* Test Item Value Reference Range Interpretation Comments Absolute Immature Granulocyte (auto (mitra t code = Absolute Immature Granulocyte (auto) 0.07 0-0.1 [facility] Hospitalerum or plasma sodium measurement (moles/volume)2019-11-08 05:35:00* Test Item Value Reference Range Interpretation Comments Sodium Level (test code = 2951-2) 141 136-145 [facility] Hospitalerum or plasma potassium measurement (moles/volume)2019-11-08 05:35:00* Test Item Value Reference Range Interpretation Comments Potassium Level (test code = 2823-3) 4.5 3.5-5.1 [facility] Hospitalerum or plasma chloride measurement (moles/volume)2019-11-08 05:35:00* Test Item Value Reference Range Interpretation Comments Chloride Level (test code = 2075-0) 108 98-107 [facility] Hospitalerum or plasma carbon dioxide, total measurement (moles/volume)2019-11-08 05:35:00* Test Item Value Reference Range Interpretation Comments Carbon Dioxide Level (test code = 2028-9) 29 22-29 [facility] Hospitalerum or plasma anion fdg0710-39-09 05:35:00* Test Item Value Reference Range Interpretation Comments Anion Gap (test code = 07764-7) 8.5 8-16 [facility] Hospitalerum or plasma urea nitrogen measurement (mass/volume)2019-11-08 05:35:00* Test Item Value Reference Range Interpretation Comments Blood Urea Nitrogen (test code = 3094-0) 12 7-26 [facility] Hospitalerum or plasma creatinine measurement (mass/volume)2019-11-08 05:35:00* Test Item Value Reference Range Interpretation Comments Creatinine (test code = 2160-0) 0.86 0.72-1.25 [facility] Hospitalerum or plasma urea nitrogen/creatinine mass kqcmh1380-29-13 05:35:00* Test Item Value Reference Range Interpretation Comments BUN/Creatinine Ratio (test code = 3097-3) 14 6-25 [facility] CenterEstimated glomerular filtration rate (GFR) bpmgwgfgesqjl0479-69-28 05:35:00* Test Item Value Reference Range Interpretation Comments Estimat Glomerular Filtration Rate (test code = 992416050) > 60 >60 Ranges were taken from the National Kidney Disease Education Program and the [facility] Kidney Foundation literature.Reference ranges:60 or greater: Bfnvhr28-12 ( for 3 consecutive months): Chronic kidney disease 15 or less: Kidney failureShannon Medical CenterGlucose aamyprlmafk0260-27-85 05:35:00* Test Item Value Reference Range Interpretation Comments Glucose Level (test code = IFO2448) 97 74-118 [facility] Hospitalerum or plasma calcium measurement (mass/volume)2019-11-08 05:35:00* Test Item Value Reference Range Interpretation Comments Calcium Level (test code = 76322-6) 8.6 8.4-10.2 [facility] Hospitalerum or plasma total bilirubin measurement (mass/volume)2019-11-08 05:35:00* Test Item Value Reference Range Interpretation Comments Total Bilirubin (test code = 1975-2) 0.6 0.2-1.2 [facility] CenterFluoroscopic procedure less than one hour zldjmbws6779-15-09 05:35:00* Test Item Value Reference Range Interpretation Comments Aspartate Amino Transf (AST/SGOT) (test code = Aspartate Amino Transf (AST/SGOT)) 10 5-34 [facility] Hospitalerum or plasma alanine aminotransferase measurement (enzymatic activity/volume)2019-11-08 05:35:00* Test Item Value Reference Range Interpretation Comments Alanine Aminotransferase (ALT/SGPT) (test code = 1742-6) 14 0-55 [facility] Hospitalerum or plasma protein measurement (mass/volume)2019-11-08 05:35:00* Test Item Value Reference Range Interpretation Comments Total Protein (test code = 2885-2) 6.2 6.5-8.1 [facility] Hospitalerum or plasma albumin measurement (mass/volume)2019-11-08 05:35:00* Test Item Value Reference Range Interpretation Comments Albumin (test code = 1751-7) 3.2 3.5-5.0 [facility] CenterPlasma globulin measurement (mass/volume) 2019-11-08 05:35:00* Test Item Value Reference Range Interpretation Comments Globulin (test code = 39577-8) 3.0 2.3-3.5 [facility] Hospitalerum or plasma albumin/globulin mass ixpyu0962-54-92 05:35:00* Test Item Value Reference Range Interpretation Comments Albumin/Globulin Ratio (test code = 1759-0) 1.1 0.8-2.0 [facility] Hospitalerum or plasma alkaline phosphatase measurement (enzymatic activity/volume)2019-11-08 05:35:00* Test Item Value Reference Range Interpretation Comments Alkaline Phosphatase (test code = 6768-6) 83 40-150 [facility] CenterNEPHRO/URET W IMG/INJ-NEW KFG1189-19-54 16:31:00 [place] [address] Patient Name: LAVINIA AUGUSTIN MR #: [id number] : 1950 Age/Sex: 69/M Req #: [id number] Adm Physician: JÚNIOR PEPE MD Ordered by: KIRILL KAPOOR MD Report #: [id number] Location: MED/SURG Room/Bed: [facility] Procedure: [id number] IR/ NEPHRO/URET W IMG/INJ-NEW ACC Exam Date: Exam Time: REPORT STATUS: Signed PROCEDUR E: Genitourinary catheter placement Procedural Personnel Attending physic romina(s): Rigoberto Alexander MD Fellow physician(s): None Resident physician(s): None Advanced practice provider(s): None Pre-procedure diagnosis: Right hydro nephrosis, right ureteral obstruction Post-procedure diagnosis: Same Indicat ion: Urinary obstruction Catheter(s) placed because the previous catheter(s) b ecame dislodged within 30 days of placement (QCDR): No Additional clinical h istory: None Complications: No immediate complications. IMPRESSION: Right nephrostomy tube placement. Plan: Tube to gravity drainage. Routine exchange in 8-10 weeks if tube is still needed. PROCEDURE SUMMARY - Target or sabiha: Unilateral yurok kidney - Image-guided placement of genitourinary cathet er(s) - Additional procedure(s): None PROCEDURE DETAILS: Pre-procedu re Consent: Informed consent for the procedure including risks, benefits and alternatives was obtained and time-out was performed prior to the procedure. Preparation: The site was prepared and draped using maximal sterile barrier te chnique including cutaneous antisepsis. Anesthesia/sedation Level of anes thesia/sedation: Moderate sedation (conscious sedation) 1mg Versed 50mcg Fenta nyl Anesthesia/sedation administered by: Independent trained observer under attending supervision with continuous monitoring of the patient?s level of con sciousness and physiologic status Total intra-service sedation time (minutes): 30 Right genitourinary catheter placement Local anesthesia was administe red. A needle was advanced into the renal collecting system under ultrasound a nd fluoroscopy guidance. A wire was advanced, the tract was serially dilated a nd a nephrostomy tube was placed . Contrast injection was performed. Genitou rinary catheter placed: 10Fr Uresil Findings: Locking loop in renal pelvis. External catheter securement: Non-absorbable suture Additional genitourina ry system intervention Genitourinary intervention: None Location of interven tion: Not applicable Device used: Not applicable Description of intervention : Not applicable Post-intervention findings: Not applicable Contrast Co ntrast agent: Isovue 370 Contrast volume (mL): 25 Radiation Dose Fluoro scopy time (minutes): 2.8 Reference air kerma (mGy): 19.9 Additional D etails Additional description of procedure: None Equipment details: None S pecimens removed: None. A sample was sent for analysis. Estimated blood loss ( mL): Less than 10 Standardized report: [email or web address]_v3 Attesta tion Signer name: Rigoberto Alexander MD I attest that I was present for the entire procedure. I reviewed the stored images and agree with the report as written. Signed by: Rigoberto Alexander MD on 11/07/2019 4:33 PM Dictated By: NEHAL ALEXANDER MD 32 Transcribe d By: ESTHER on 11/07/191632 COPY TO: KIRILL KAPOOR MD IR [id number] 16:31:00 [place] [address] Patient Name: LAVINIA AUGUSTIN MR #: [id number] : 1950 Age/Sex: 69/M Req #: [id number] Adm Physician: JÚNIOR PEPE MD Ordered by: KIRILL KAPOOR MD Report #: [id number] Location: MED/SURG Room/Bed: [facility] Procedure: [id number] DX/ IR CONSULT Exam Date: Exam Time: REPORT STATUS: Signed PROCEDURE: Genitourinary ca theter placement Procedural Personnel Attending physician(s): Rigoberto Alexander MD Fellow physician(s): None Resident physician(s): None Advanced practic e provider(s): None Pre-procedure diagnosis: Right hydronephrosis, right ur eteral obstruction Post-procedure diagnosis: Same Indication: Urinary obstru ction Catheter(s) placed because the previous catheter(s) became dislodged wit hin 30 days of placement (QCDR): No Additional clinical history: None C omplications: No immediate complications. IMPRESSION: Right nephrostom y tube placement. Plan: Tube to gravity drainage. Routine exchange in 8-10 weeks if tube is still needed. PROCEDURE SUMMARY - Target organ: Unilateral [place] kidney - Image-guided placement of genitourinary catheter(s) - Additiona l procedure(s): None PROCEDURE DETAILS: Pre-procedure Consent: Infor med consent for the procedure including risks, benefits and alternatives was o btained and time-out was performed prior to the procedure. Preparation: The si te was prepared and draped using maximal sterile barrier technique including c utaneous antisepsis. Anesthesia/sedation Level of anesthesia/sedation: Mo derate sedation (conscious sedation) 1mg Versed 50mcg Fentanyl Anesthesia/se dation administered by: Independent trained observer under attending supervisi on with continuous monitoring of the patient?s level of consciousness and phys iologic status Total intra-service sedation time (minutes): 30 Right padmini tourinary catheter placement Local anesthesia was administered. A needle was a dvanced into the renal collecting system under ultrasound and fluoroscopy guid ance. A wire was advanced, the tract was serially dilated and a nephrostomy tu be was placed . Contrast injection was performed. Genitourinary catheter frederick donald: 10Fr Uresil Findings: Locking loop in renal pelvis. External catheter securement: Non-absorbable suture Additional genitourinary system intervent ion Genitourinary intervention: None Location of intervention: Not applicabl e Device used: Not applicable Description of intervention: Not applicable Post-intervention findings: Not applicable Contrast Contrast agent: Isovu e 370 Contrast volume (mL): 25 Radiation Dose Fluoroscopy time (minutes ): 2.8 Reference air kerma (mGy): 19.9 Additional Details Additional description of procedure: None Equipment details: None Specimens removed: N one. A sample was sent for analysis. Estimated blood loss (mL): Less than 10 Standardized report: [email or web address]_v3 Attestation Signer name: Rigoberto Alexander MD I attest that I was present for the entire procedure. I review ed the stored images and agree with the report as written. Signed b y: Rigoberto Alexander MD on 11/07/2019 4:33 PM Dictated By: RIGOBERTO ALEXANDER MD Electro nically Signed By: RIGOBERTO ALEXANDER MD on 11/07/191632 Transcribed By: ESTHER on 1632 COPY TO: KIRILL KAPOOR MD US GUIDANCE FOR PROCEDURE 2019-11-07 16:31:00 [place] [address] Patient Name: LAVINIA AUGUSTIN MR #: [id number] : 1950 Age/Sex: 69/M Req #: [id number] Adm Physician: JÚNIOR PEPE MD Ordered by: KIRILL KAPOOR MD Report #: [id number] Location: MED/SURG Room/Bed: [facility] Procedure: [id number] US/ US GUIDANCE FOR PROCEDURE Exam Date: 11/07/19 Exam T destin: 1354 REPORT STATUS: Signed PROCEDURE: Genitourinary catheter placement Procedural Personnel Attendin g physician(s): Rigoberto Alexander MD Fellow physician(s): None Resident physician( s): None Advanced practice provider(s): None Pre-procedure diagnosis: Rig ht hydronephrosis, right ureteral obstruction Post-procedure diagnosis: Same Indication: Urinary obstruction Catheter(s) placed because the previous fran ter(s) became dislodged within 30 days of placement (QCDR): No Additional cl inical history: None Complications: No immediate complications. IMPRES TANIKA: Right nephrostomy tube placement. Plan: Tube to gravity dr dobson. Routine exchange in 8-10 weeks if tube is still needed. PROCEDURE SUMMARY - T arget organ: Unilateral [place] kidney - Image-guided placement of genitourinar y catheter(s) - Additional procedure(s): None PROCEDURE DETAILS: Pre -procedure Consent: Informed consent for the procedure including risks, benefi ts and alternatives was obtained and time-out was performed prior to the proce dure. Preparation: The site was prepared and draped using maximal sterile [place] ier technique including cutaneous antisepsis. Anesthesia/sedation Level of anesthesia/sedation: Moderate sedation (conscious sedation) 1mg Versed 50m cg Fentanyl Anesthesia/sedation administered by: Independent trained observer under attending supervision with continuous monitoring of the patient?s level of consciousness and physiologic status Total intra-service sedation time (m inutes): 30 Right genitourinary catheter placement Local anesthesia was a dministered. A needle was advanced into the renal collecting system under ultr asound and fluoroscopy guidance. A wire was advanced, the tract was serially d ilated and a nephrostomy tube was placed . Contrast injection was performed. Genitourinary catheter placed: 10Fr Uresil Findings: Locking loop in renal p edel. External catheter securement: Non-absorbable suture Additional gen itourinary system intervention Genitourinary intervention: None Location of intervention: Not applicable Device used: Not applicable Description of inte rvention: Not applicable Post-intervention findings: Not applicable Contr ast Contrast agent: Isovue 370 Contrast volume (mL): 25 Radiation Dose Fluoroscopy time (minutes): 2.8 Reference air kerma (mGy): 19.9 Keyon tional Details Additional description of procedure: None Equipment details: None Specimens removed: None. A sample was sent for analysis. Estimated bloo d loss (mL): Less than 10 Standardized report: [email or web address]_v3 Attestation Signer name: Rigoberto Alexander MD I attest that I was present for the entire procedure. I reviewed the stored images and agree with the report as megha wang. Signed by: Rigoberto Alexander MD on 11/07/2019 4:33 PM Dictated By: RGIOBERTO ALEXANDER MD 2332 Tr anscribed By: ESTHER on 11/07/19 8563 COPY TO: KIRILL KAPOOR MD Prothrombin [id number] 10:33:00* Test Item Value Reference Range Interpretation Comments Prothrombin Time (test code = 5902-2) 12.3 11.9-14.5 [facility] International Ratio 2019-11-07 10:33:00* Test Item Value Reference Range Interpretation Comments Prothromb Time International Ratio (test code = 6301-6) 0.87 Oral Anticoagulant Therapy INR Values:1. Low Intensity Therapy 1.5 - 2.02 . Moderate Intensity Therapy 2.0 - 3.03. High Intensity Therapy(1) 2.5 - 3. 54. High Intensity Therapy(2) 3.0 - 4.05. Panic Value INR > 5.0 [facility] Thromboplast Time 2019-11-07 10:33:00* Test Item Value Reference Range Interpretation Comments Activated Partial Thromboplast Time (test code = 38941-0) 30.0 23.8-35.5 [facility] [id number] 10:09:00 [place] [address] Patient Name: LAVINIA AUGUSTIN MR #: [id number] : [birth year] Age/Sex: 69/M Req #: [id number] Adm Physician: Ordered by: KIRILL KAPOOR MD Report #: [id number] Location: ER Room/Bed: Procedure: [id number] CT/ CT ABDOMEN/PELVIS WO Exam Date: 11/07/19 Exam Time: 0930 REPORT STATUS: Signed EXAM: CT Abdomen and Pelvis WITHOUT intravenous contrast INDICATION: Abdominal pain, renal calculus COMPARISON: KUB 10/31/2019 TECHNIQUE: Abdomen and pelvis were scanned utilizing a multidetector helical scanner from the lung ba se to the pubic symphysis without administration of IV contrast. Coronal and s agittal reformations were obtained. IV CONTRAST: None ORAL CONTRAST : None COMPLICATIONS: None RADIATION DOSE: Total DLP: 6 13.7 mGy*cm Dose modulation, iterative reconstruction, and/or weight based adjustment of the mA/kV was utilized to reduce the radiation dose to as low as reasonably achievable. FINDINGS: LOWER THORAX: Normal. HEPATOBIL IARY: No focal hepatic lesions. No biliary ductal dilatation. The gallbladder appears unremarkable. SPLEEN: No splenomegaly. PANCREAS: No focal mas ses or ductal dilatation. ADRENALS: No adrenal nodules. KIDNEYS/URETERS: Severe right hydroureteronephrosis. 11 mm obstructing calculus in the right mi d ureter. No left hydronephrosis or hydroureter. No left urinary calculus. P ELVIC ORGANS/BLADDER: Cervantes catheter in the decompressed bladder. PERITONEU M / RETROPERITONEUM: No free air or fluid. LYMPH NODES: No lymphadenopathy. VESSELS: Moderate atherosclerotic calcifications of the nonaneurysmal abdominal aorta and major branches. GI TRACT: Mild diverticulosis without CT eviden ce of diverticulitis. No abnormal bowel thickening. No bowel obstruction. Norm al appendix. BONES AND SOFT TISSUES: No acute osseous injury. No suspicious lytic or blastic lesions. IMPRESSION: 11 mm obstructing calculus in t he right mid ureter with associated severe right hydroureteronephrosis. No lef t hydronephrosis or urinary calculus. The above findings were discussed wi Dr. Kapoor on 11/07/2019 10:09 AM, who responded indicating that the communica tion was understood. Signed by: Rigoberto Alexander MD on 11/07/2019 10:23 AM Dictated By: RIGOBERTO ALEXANDER MD 1023 Transcribed By: ESTHER on 11/07/19 1023 COPY TO: KIRILL KAPOOR MD Urine [id number] 09:24:00* Test Item Value Reference Range Interpretation Comments Urine WBC (test code = 5821-4) 0-5 0-5 [facility] [id number] 09:24:00* Test Item Value Reference Range Interpretation Comments Urine RBC (test code = 40686-2) 21-50 0-5 H [facility] [id number] 09:24:00* Test Item Value Reference Range Interpretation Comments Urine Bacteria (test code = 79942-9) RARE NONE [facility] Epithelial [id number] 09:24:00 * Test Item Value Reference Range Interpretation Comments Urine Epithelial Cells (test code = 01172-3) RARE NONE [facility] [id number] 09:18:00* Test Item Value Reference Range Interpretation Comments Urine Color (test code = 5778-6) YELLOW YELLOW [facility] [id number] 09:18:00* Test Item Value Reference Range Interpretation Comments Urine Clarity (test code = 03187-7) CLEAR CLEAR [facility] Specific [id number] 09:18:00 * Test Item Value Reference Range Interpretation Comments Urine Specific [place] (test code = 5811-5) 1.015 1.010-1.02 5 [facility] [id number] 09:18:00* Test Item Value Reference Range Interpretation Comments Urine pH (test code = 60643-0) 5.5 5-7 [facility] Leukocyte [id number] 09:18:00* Test Item Value Reference Range Interpretation Comments Urine Leukocyte Esterase (test code = 5799-2) NEGATIVE NEGATIVE [facility] [id number] 09:18:00* Test Item Value Reference Range Interpretation Comments Urine Nitrite (test code = 43717-5) NEGATIVE NEGATIVE [facility] [id number] 09:18:00* Test Item Value Reference Range Interpretation Comments Urine Protein (test code = 5804-0) NEGATIVE NEGATIVE [facility] Glucose (UA)2019-11-07 09:18:00* Test Item Value Reference Range Interpretation Comments Urine Glucose (UA) (test code = 2349-9) NEGATIVE NEGATIVE [facility] Msilmpb2699-09-39 09:18:00* Test Item Value Reference Range Interpretation Comments Urine Ketones (test code = 65644-5) NEGATIVE NEGATIVE [facility] [id number] 09:18:00* Test Item Value Reference Range Interpretation Comments Urine Urobilinogen (test code = 70114-3) 0.2 0.2-1 [facility] Cknjmzigl5371-91-44 09:18:00* Test Item Value Reference Range Interpretation Comments Urine Bilirubin (test code = 1978-6) NEGATIVE NEGATIVE [facility] [id number] 09:18:00* Test Item Value Reference Range Interpretation Comments Urine Blood (test code = 63778-0) 3+ NEGATIVE [facility] CenterPro[facility]rombin time (PT) in platelet poor plasma by coagulation [id number] 08:30:00* Test Item Value Reference Range Interpretation Comments Prothrombin Time (test code = 5902-2) 12.3 11.9-14.5 [facility] CenterIN[facility] in Platelet poor plasma by Coagulation [id number] 08:30:00* Test Item Value Reference Range Interpretation Comments Prothromb Time International Ratio (test code = 6301-6) 0.87 Oral Anticoagulant Therapy INR Values:1. Low Intensity Therapy 1.5 - 2.02 . Moderate Intensity Therapy 2.0 - 3.03. High Intensity Therapy(1) 2.5 - 3. 54. High Intensity Therapy(2) 3.0 - 4.05. Panic Value INR > 5.0 [facility] CenterAct[facility] partial thromboplastin time (aPTT) in platelet poor plasma by coagulation [id number] 08:30:00* Test Item Value Reference Range Interpretation Comments Activated Partial Thromboplast Time (test code = 31267-6) 30.0 23.8-35.5 [facility] (KUB)2019-10-31 08:45:00 [facility] [address] [place] [address] Patient Name: LAVINIA AUGUSTIN MR #: [id number] : [birth year] Age/Sex: 69/M Req #: [id number] Adm Physician: Ordered by: JEAN-PIERRE GE MD Report #: [id number] Location: OR Room/Bed: Procedure: [id number] DX /ABDOMEN-1VIEW (KUB) Exam Date: Exam Time: REPORT STATUS: Signed EXAM: ABDOMEN-1V IEW (KUB) DATE: 10/31/2019 8:04 AM INDICATION: Preoperative evaluation COMPARISON: None FINDINGS/IMPRESSION: There is a 2.2 cm calcifica tion projecting over the right mid-abdomen which is in the expected course of the right ureter and may represent a ureteral stone. No prior examinations are available for comparison. No other radiographically evident renal calculi are appreciated. A suspected phlebolith is noted within the left hemipelvis. Bowel gas pattern is nonobstructive. No acute osseous abnormality is identifi ed. Signed by: Dr. Baltazar Trotter MD on 10/31/2019 8:48 AM Dictated By: BALTAZAR TROTTER MD 7 Tr anscribed By: ESTHER on 10/31/19847 COPY TO: JEAN-PIERRE GE MD [facility] 2 [id number] 08:43:00 [place] [address] Patient Name: LAVINIA AUGUSTIN MR #: [id number] : 1950 Age/Sex: 69/M Req #: [id number] Adm Physician: Ordered by: JEAN-PIERRE GE MD Report #: [id number] Location: OR Room/Bed: Procedure: [id number] DX /CHEST 2 VIEWS Exam Date: Exam Time: REPORT STATUS: Signed EXAM: CHEST 2 VIEWS DATE: 10/31/2019 8:03 AM INDICATION: Preoperative evaluation SARAH RISON: None FINDINGS: The trachea is midline. The lungs are symmetrically expanded without evidence for large focal consolidation, pneumothorax, or sig nificant pleural effusion. The cardiomediastinal silhouette and pulmonary v asculature are within normal limits. No acute osseous abnormality is identifie d. The surrounding soft tissues are unremarkable. IMPRESSION: No acute cardiopulmonary process identified. Signed by: Dr. Baltazar Trotter MD o n 10/31/2019 8:44 AM Dictated By: BALTAZAR TROTTER MD 3 Transcribed By: ESTHER on 10/31/19843 COPY TO: JEAN-PIERRE EG MD
--- NOTE | 2020-04-10 15:31 | Diagnostic Imaging Report ---
EXAM: CT Abdomen and Pelvis WITH intravenous contrast INDICATION: Abdominal pain COMPARISON: CT abdomen and pelvis of 11/07/2019 TECHNIQUE: Abdomen and pelvis were scanned utilizing a multidetector helical scanner from the lung base to the pubic symphysis after administration of IV contrast. Coronal and sagittal reformations were obtained. Routine protocol was performed. Scan was performed during portal venous phase. IV CONTRAST: 100mL of Isovue 370 ORAL CONTRAST: Water RADIATION DOSE: Total DLP: 495 mGy*cm Dose modulation, iterative reconstruction, and/or weight based adjustment of the mA/kV was utilized to reduce the radiation dose to as low as reasonably achievable. FINDINGS: LOWER THORAX: Interstitial and groundglass opacities at both lung bases. HEPATOBILIARY: Diffuse hepatic steatosis. No focal liver lesion. No biliary ductal dilation. Unremarkable gallbladder. SPLEEN: No splenomegaly. PANCREAS: No focal masses or ductal dilatation. ADRENALS: No adrenal nodules. KIDNEYS/URETERS: Again seen is the 11 mm obstructive right proximal ureteral calculus which results in moderate right hydroureteronephrosis. The indwelling nephrostomy has been pulled back and is partially within the right lower pole renal parenchyma. No left renal calculi, hydronephrosis or hydroureter. No solid renal mass lesions. PELVIC ORGANS/BLADDER: Unremarkable. PERITONEUM / RETROPERITONEUM: No free air or fluid. LYMPH NODES: No lymphadenopathy. VESSELS: Moderate atherosclerotic calcifications of the nonaneurysmal abdominal aorta and major branches. GI TRACT: No abnormal bowel thickening. No bowel obstruction. Normal appendix. BONES AND SOFT TISSUES: No acute osseous injury. IMPRESSION: Partial interval retraction of the indwelling right percutaneous nephrostomy tube which is partially now within the renal parenchyma. Unchanged appearance of the 11 mm obstructive right proximal ureteral calculus with moderate right hydroureteronephrosis. Interstitial and groundglass opacities at both lung bases, compatible with known history of recent viral pneumonia. Diffuse hepatic steatosis. Signed by: Teto Gilliam MD on 04/10/2020 3:28 PM
[2020-04-10] MEDS ORDERED: IOPAMIDOL 300MG/ML 100 ML INFUS..BTL IV ONE (15:35)
[2020-04-10] MEDS ORDERED: LIDOCAINE HCL 1% LOCAL INJ 20 ML VIAL ONE (15:35)
[2020-04-10] MEDS ORDERED: SODIUM CHLORIDE 0.9% 250ML 250 ML ONE (15:35)
[2020-04-10] MEDS ORDERED: SODIUM CHLORIDE 0.9% 50ML 50 ML ONE (15:43)
[2020-04-10] MEDS ORDERED: IOPAMIDOL 370 MG/ML 200 ML INFUS..BTL INJ ONE (15:43)
[2020-04-10 16:17] LABS: CLARITY,URINE SL CLOUDY (CLEAR); COLOR,URINE PINK (YELLOW); KETONES,URINE NEGATIVE (NEGATIVE); LEUKOCYTE ESTERASE ,URINE MODERATE (NEGATIVE); NITRITE,URINE NEGATIVE (NEGATIVE); PROTEIN,URINE DIPSTICK NEGATIVE (NEGATIVE)
[2020-04-10 16:18] LABS: BILIRUBIN,URINE NEGATIVE (NEGATIVE); URINE UROBILINOGEN 0.2 mg/dL (0.2 - 1)
[2020-04-10 16:27] LABS: RBC,URINE >50 /HPF (0-5)
[2020-04-10 16:28] LABS: BACTERIA,URINE FEW /HPF
[2020-04-10] MEDS: AZITHROMYCIN 500MG/NS 250 ML 250 ML IV SCH (16:30)
--- NOTE | 2020-04-10 16:35 | Diagnostic Imaging Report ---
PROCEDURE: Genitourinary catheter exchange Procedural Personnel Attending physician(s): Teto Gilliam MD Fellow physician(s): None Resident physician(s): None Advanced practice provider(s): None Pre-procedure diagnosis: Ureteral obstruction, hydronephrosis Post-procedure diagnosis: Same Indication: Right hydronephrosis Additional clinical history: Indwelling right nephrostomy tube partially displaced. Complications: No immediate complications. IMPRESSION: Successful right PCN exchange for new 10Fr PCN. Plan: PCN to gravity drainage. PROCEDURE SUMMARY - Target organ: Right [place] kidney - Nephrostomy tube exchange - Additional procedure(s): None PROCEDURE DETAILS: Pre-procedure Consent: Informed consent for the procedure including risks, benefits and alternatives was obtained and time-out was performed prior to the procedure. Preparation: The site was prepared and draped using maximal sterile barrier technique including cutaneous antisepsis. Anesthesia/sedation Level of anesthesia/sedation: No sedation Anesthesia/sedation administered by: Independent trained observer under attending supervision with continuous monitoring of the patient?s level of consciousness and physiologic status Total intra-service sedation time (minutes): None Right genitourinary catheter exchange Local anesthesia was administered. Initial nephrostogram was not performed. A wire was placed through the existing tube and it was removed. The new tube was advanced over the wire and position was confirmed with contrast injection. Pre-existing genitourinary catheter: 10Fr Uresil Genitourinary catheter(s) placed: 10Fr Uresil Findings: Moderate right hydroureteronephrosis. External catheter securement: Non-absorbable suture Additional genitourinary system intervention Genitourinary intervention: None Location of intervention: Not applicable Device used: Not applicable Description of intervention: Not applicable Post-intervention findings: Not applicable Contrast Contrast agent: Isovue 370 Contrast volume (mL): 10 Radiation Dose Fluoroscopy time (minutes): 1.0 Reference air kerma (mGy): 12.0 Additional Details Additional description of procedure: None Equipment details: None Specimens removed: None Estimated blood loss (mL): Less than 10 Standardized report: [email or web address]_v3 Attestation Signer name: Teto Gilliam MD I attest that I was present for the entire procedure. I reviewed the stored images and agree with the report as written. Signed by: Teto Gilliam MD on 04/10/2020 4:31 PM
--- NOTE | 2020-04-10 16:35 | Diagnostic Imaging Report ---
PROCEDURE: Genitourinary catheter exchange Procedural Personnel Attending physician(s): Teto iGlliam MD Fellow physician(s): None Resident physician(s): None Advanced practice provider(s): None Pre-procedure diagnosis: Ureteral obstruction, hydronephrosis Post-procedure diagnosis: Same Indication: Right hydronephrosis Additional clinical history: Indwelling right nephrostomy tube partially displaced. Complications: No immediate complications. IMPRESSION: Successful right PCN exchange for new 10Fr PCN. Plan: PCN to gravity drainage. PROCEDURE SUMMARY - Target organ: Right [place] kidney - Nephrostomy tube exchange - Additional procedure(s): None PROCEDURE DETAILS: Pre-procedure Consent: Informed consent for the procedure including risks, benefits and alternatives was obtained and time-out was performed prior to the procedure. Preparation: The site was prepared and draped using maximal sterile barrier technique including cutaneous antisepsis. Anesthesia/sedation Level of anesthesia/sedation: No sedation Anesthesia/sedation administered by: Independent trained observer under attending supervision with continuous monitoring of the patient?s level of consciousness and physiologic status Total intra-service sedation time (minutes): None Right genitourinary catheter exchange Local anesthesia was administered. Initial nephrostogram was not performed. A wire was placed through the existing tube and it was removed. The new tube was advanced over the wire and position was confirmed with contrast injection. Pre-existing genitourinary catheter: 10Fr Uresil Genitourinary catheter(s) placed: 10Fr Uresil Findings: Moderate right hydroureteronephrosis. External catheter securement: Non-absorbable suture Additional genitourinary system intervention Genitourinary intervention: None Location of intervention: Not applicable Device used: Not applicable Description of intervention: Not applicable Post-intervention findings: Not applicable Contrast Contrast agent: Isovue 370 Contrast volume (mL): 10 Radiation Dose Fluoroscopy time (minutes): 1.0 Reference air kerma (mGy): 12.0 Additional Details Additional description of procedure: None Equipment details: None Specimens removed: None Estimated blood loss (mL): Less than 10 Standardized report: [id number] Attestation Signer name: Teto Gilliam MD I attest that I was present for the entire procedure. I reviewed the stored images and agree with the report as written. Signed by: Teto Gilliam MD on 04/10/2020 4:31 PM
[2020-04-10 18:00] VITALS: BP 139/85
[2020-04-10 18:10] VITALS: BP 139/85
[2020-04-10 20:54] VITALS: BP 141/77
[2020-04-10 21:14] VITALS: BP 141/77
[2020-04-10] MEDS ORDERED: ACETAMINOPHEN 325 MG TAB PO PRN (22:45)
[2020-04-10] MEDS ORDERED: HYDRALAZINE HCL 25 MG TAB PO PRN (23:00)
[2020-04-11 01:24] VITALS: BP 128/73
[2020-04-11 05:18] VITALS: BP 140/87
[2020-04-11 05:58] LABS: BASOPHILS # (AUTO) 0.1 (0.0-0.1); BASOPHILS % 1.3 % (0.0-1.0); EOSINOPHILS # (AUTO) 0.4 (0.0-0.4); EOSINOPHILS % 5.3 % (0.0-6.0); HEMATOCRIT 38.6 % (38.2-49.6); HEMOGLOBIN 12.5 g/dL (14.0-18.0); LYMPHOCYTES # (AUTO) 1.6 (1.0-3.2); LYMPHOCYTES % 21.6 % (18.0-39.1); MEAN CORPUSCULAR HEMOGLOBIN 27.2 pg (28-32); MEAN CORPUSCULAR HGB CONC 32.4 g/dL (31-35); MEAN CORPUSCULAR VOLUME 84.1 fL (81-99); MONOCYTES # (AUTO) 0.9 (0.2-0.8); MONOCYTES % 11.7 % (4.4-11.3); NEUTROPHILS # (AUTO) 4.5 (2.1-6.9); NEUTROPHILS % 59.6 % (38.7-80.0); PLATELET COUNT 333 x10e3/uL (140-360); RED BLOOD COUNT 4.59 x10e6/uL (4.3-5.7); RED CELL DISTRIBUTION WIDTH 14.6 % (11.7-14.4)
[2020-04-11 06:16] LABS: ALANINE AMINOTRANSFERASE 19 IU/L (0-55); ALBUMIN 3.7 g/dL (3.5-5.0); ALBUMIN/GLOBULIN RATIO 1.2 (0.8-2.0); ALKALINE PHOSPHATASE 104 IU/L (40-150); ANION GAP 16.7 mmol/L (8-16); BLOOD UREA NITROGEN 14 mg/dL (7-26); BUN/CREATININE RATIO 18 (6-25); CALCIUM 8.9 mg/dL (8.4-10.2); CARBON DIOXIDE 21 mmol/L (22-29); CHLORIDE 106 mmol/L (98-107); CREATININE, SERUM 0.76 mg/dL (0.72-1.25); EST GLOMERULAR FILTRATION RATE > 60 ML/MIN (60-); GLUCOSE 95 mg/dL (74-118); POTASSIUM 3.7 mmol/L (3.5-5.1); SODIUM 140 mmol/L (136-145)
[2020-04-11] MEDS ORDERED: PANTOPRAZOLE SOD 40 MG TABEC PO SCH (07:30)
[2020-04-11] MEDS: AZITHROMYCIN 500MG/NS 250 ML 250 ML IV SCH (08:05)
[2020-04-11 08:41] VITALS: BP 151/86
[2020-04-11 09:00] VITALS: BP 151/86
[2020-04-11] MEDS ORDERED: TAMSULOSIN HCL 0.4 MG CAP PO SCH (09:00)
[2020-04-11] MEDS ORDERED: FINASTERIDE 5 MG TAB PO SCH (09:00)
[2020-04-11] MEDS ORDERED: ONDANSETRON HCL 4 MG ORAL DISINTEGRATING TAB PO PRN (09:45)
--- NOTE | 2020-04-11 10:00 | NUR ---
Patient discharged. IV access removed. Patient and know proper care of nephrostomy tube. patient and aware of prescriptions and discharge instructions. patient ambulated off unit in stable condition to 's personal vehicle.
--- NOTE | 2020-04-11 10:25 | Discharge Summary ---
PRIMARY CARE PHYSICIAN: Feng Banegas MD The patient placed on observation. FINAL DIAGNOSIS: Right nephrostomy tube displacement, status post exchange to a larger tube. SUMMARY: The patient is a 69-year-old male with right nephrostomy tube for right hydronephrosis associated with kidney stone 11 mm. The patient has history of lithotripsy. He has nephrostomy tube. He had previously had some infection. The patient is otherwise stable. He had recently been in contact with COVID-19 infection. The patient is asymptomatic. He is stable. Urine cloudy. Cultures pending. The patient is stable. Previously, he was on antibiotics. The previous urine culture that was done back in November 2019, at that time, his urine culture, clean catch, showed that he has Stenotrophomonas maltophilia and Staphylococcus epidermidis. The patient was sensitive to tetracyclines and also chloroquinolone. The patient is going to go home with Cipro 250 mg twice a day for 10 days along with doxycycline monohydrate 100 mg twice a day for 10 days. The patient will resume his other usual home medication. The patient is stable. Discharged home. Continue with followup with Dr. Sebastian Tavarez, his urologist. He will follow up with his family physician for medication reconciliation for post hospitalization followup. The patient is otherwise stable. Discharged with the following medication: Cipro 250 mg twice a day 10 days, doxycycline monohydrate 100 mg twice a day for 10 days, tramadol 50 mg q.6 p.r.n. for pain and Zofran ODT 4 mg sublingual q.4 p.r.n. for nausea and vomiting. The patient is stable. Discharged home today. He will follow up as instructed. MD DOYLE Dunn/RACHAELL /[id number]
[2020-04-11] MEDS ORDERED: CEFTRIAXONE SOD 1 GM/NS 50 ML 50 ML IV SCH (14:00)
[2020-04-11] MEDS ORDERED: SIMVASTATIN 20 MG TAB PO SCH (21:00)
== END 2020-04-11 10:00 | disposition home or self-care (01) ==
LOC: ER 12:10 → ERHOLD 15:11 → INTOOBSV 15:11 → MED/SURG2 17:42
PROVIDERS: ADMIT Internal Medicine; ATTEND Internal Medicine
DX: T83.022A Displacement of nephrostomy catheter, initial encounter (principal); N13.5 Crossing vessel and stricture of ureter without hydronephrosis; N13.1 Hydronephrosis with ureteral stricture, not elsewhere classified; Z11.59 Encounter for screening for other viral diseases
CPT/HCPCS: 36415 ×2; 50435; 74177; 74470; 80053 ×2; 81001; 82948; 85025 ×2; 99284; G0378 ×2; J0456 ×2; J0696; J2001; J7050; Q9967 ×2; S0164; U0002; 50387; J2270; J2405